=== PATIENT | female | born 1945 | race Caucasian/White ===

== ENCOUNTER → 2016-02-14 | Outpatient (CLI) | payer MEDICARE, OTHER ==
[~2016-02-14] MED LIST: EST.1TD TD; FLUO20CA25 PO; HYDR1TAB PO; LVT.1T PO; TRIA15OI9 TOP; TRIA1CAP PO; VITAMIN B12 INJ; WELCHOL PO
--- OUTSIDE RECORDS SUMMARY | 2016-02-14 11:42 | XMS REPORT | Continuity of Care Document ---
Author Author [facility] Organization [facility] Address Unknown Phone Unavailable Care Team Providers Care Competency Evaluated Nurse Aide Name Role Phone BRITTANIE GOEL DO PCP Insurance Providers Payer Name Policy Number Subscriber Name Relationship [employer] [id number] Jason Gomez 18 Self / Same As Patient Blue [employer] [facility] Supp [id number] Jevon Gomez 01 Advance Directives Directive Response Recorded Date/Time Advance Directives No 05/17/14 7:50am Health Care Power of Pack Worker Supervisor No 05/17/14 7:50am Organ Donor Yes 05/17/14 7:50am Resuscitation Status Full Code 05/17/14 7:50am Problems No known problems or medical conditions. Medications Medication Dose Route Sig Days/Qty Instructions Order Date Discontinued Date Status Levothyroxine Sodium 1 Tab PO DAILY 30 Qty 05/16/08 Active Fluoxetine HCl (Prozac) 20 Mg PO DAILY 34 Qty 05/16/08 Active Triamterene/HCTZ 1 Each PO DAILY 1 Qty 05/16/08 Active [Welchol] 1,875 Mg PO DAILY 09/25/12 05/17/14 Discontinued Triamcinolone Acetonide (Kenalog) 0 TOP WEEKLY APPLY SPRARINGLY TO AFFECTED AREA(S) 09/25/12 05/17/14 Discontinued Social History Social History Problem Response Recorded Date/Time Recent Foreign Travel No 05/17/2014 7:55am Smoking Status Never a Smoker 05/17/2014 7:50am Do you dip or chew tobacco? No 05/17/2014 7:50am Query Response Start Date Stop Date Smoking Status Never a Smoker Hospital Discharge Instructions No hospital discharge instructions. Plan of Care No plan of care. Functional Status No functional status results. Allergies, Adverse Reactions, Alerts Allergen Type Severity Reaction Status Last Updated NKANo Known Allergies Allergy Mild Active 05/16/08 Immunizations No immunization records. Vital Signs Acute Vital Signs Vital Response Date/Time Temperature (Fahrenheit) 97.8 degrees F (97.6 - 99.5) Temperature (Calculated Celsius) 36.14721 degrees C (36.4 - 37.5) Temperature Source Tympanic Pulse Rate (adult) 69 bpm (60 - 90) Respiratory Rate 18 bpm (12 - 24) O2 Sat by Pulse Oximetry 93 % (88 - 100) Blood Pressure 128/91 mm Hg Blood Pressure 108/65 mm Hg Pain Pain Intensity 0 Height (Feet) 5 feet Height (Inches) 0.00 inches Height (Calculated Centimeters) 152.114200 cm Weight (Pounds) 140 pounds Weight (Calculated Grams) 44543.932 gm Weight (Calculated Kilograms) 63.122403 kilograms Height 5 ft 0 in Weight 140 lb Body Mass Index 27.3 kg/m^2 Results No known relevant diagnostic tests, laboratory data and/or discharge summary. Procedures No known history of procedures. Encounters Encounter Location Date/Time Registered [facility] 05/17/14 7:26am Registered Clinic [facility] 05/12/14 6:07am
--- NOTE | 2016-02-14 13:01 | Diagnostic Imaging Report ---
PROCEDURE: MRI right joint upper extremity without contrast. TECHNIQUE: Multiplanar, multisequence non contrast-enhanced MRI of the right upper extremity was accomplished. INDICATION: Rotator cuff injury. Fall. FINDINGS: There is no os acromiale or Hill-Sachs deformity. There is acromioclavicular joint hypertrophy with inferior capsular hypertrophy and osteophyte seen. This has an impression upon the supraspinatus myotendinous junction. There is a full-thickness tear with 5 mm tendon stump retraction from the insertion site seen involving the anterior fibers of the supraspinatus and high-grade partial tear involving the posterior fibers. There are intrasubstance and bursal side partial tears involving the insertion of the infraspinatus. There is small amount of fluid in the subacromial subdeltoid bursa. The long head biceps tendon is within its groove. There is thickening and increased signal in the subscapular tendon compatible with tendinosis and suggestion of an intrasubstance tear in the distal aspect of this tendon. No definitive abnormality is seen on gross evaluation of the labrum on this study without intra-articular contrast. The muscle bulk and signal around the shoulder is within normal limits. IMPRESSION: 1. Rotator cuff tears most prominent in the anterior fibers of the supraspinatus that demonstrates a full-thickness tear with 5 mm tendon stump retraction. 2. 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 Dictated by: Dictated on workstation # [id number]
== END ==
LOC: RAD 11:38
PROVIDERS: ATTEND Internal Medicine
DX: S46.001A Unspecified injury of muscle(s) and tendon(s) of the rotator cuff of right shoulder, initial encounter (principal); X58.XXXA Exposure to other specified factors, initial encounter; Y99.8 Other external cause status
CPT/HCPCS: 73221

== ENCOUNTER → 2016-08-27 | Outpatient (CLI) | payer MEDICARE, OTHER ==
[~2016-08-27] MED LIST changes: +CATHETER FLUSH 10 ML SYR IV PRN
[2016-08-27 08:04] VITALS: BP 111/75
[2016-08-27 08:26] VITALS: BP 148/66
--- NOTE | 2016-08-28 09:27 | STRESS TEST ---
PROCEDURE PHYSICIAN: DURGA YODER DATE OF PROCEDURE: 08/27/2016 EXERCISE NUCLEAR STRESS TEST REPORT: ATTENDING PHYSICIAN: Dr. South DIAGNOSIS: Exertional shortness of breath. PROCEDURE DETAILS: Please review Dr. South's note on the exercise stress test. Myocardial perfusion imaging was performed with 10.34 mCi of Myoview at rest and 31.8 mCi of Myoview for stress imaging. TID was 0.95. EF was 75%. There is a small mild fixed apical defect. There is normal wall motion. In lieu of normal wall motion, this is likely an artifact. IMPRESSION/CONCLUSION: 1. Normal LV function. 2. Small mild fixed apical defect which is likely an artifact. Job ID: [id number] Dictated Date: 08/27/2016 13:23:00 Safety Instructor Date: 08/28/2016 09:22:15 / anabel
== END ==
LOC: CARD 06:38
PROVIDERS: ATTEND Internal Medicine
DX: R06.09 Other forms of dyspnea (principal); I10 Essential (primary) hypertension
CPT/HCPCS: 78452; 93017

== ENCOUNTER → 2016-09-04 | Outpatient (CLI) | payer MEDICARE, OTHER ==
[~2016-09-04] MED LIST changes: -CATHETER FLUSH 10 ML SYR IV PRN
--- NOTE | 2016-09-06 14:29 | Diagnostic Imaging Report ---
Bilateral screening mammogram 2D views with tomosynthesis The current study was also evaluated with a Computer Aided Detection (CAD) system. INDICATION: Screening. No current complaints stated on the questionnaire. COMPARISON: 08/18/2015. FINDINGS: The breasts are composed of heterogeneously dense parenchyma which may decrease mammographic sensitivity. Scattered benign-appearing calcifications seen. Allowing for technique and positional differences, no suspicious change is seen. IMPRESSION: No significant change. ACR BI-RADS Category 2: Benign findings. Result letter will be mailed to the patient. Note: At least 10% of breast cancer is not imaged by mammography. Dictated by: Dictated on workstation # [id number]
== END ==
LOC: RAD 10:57
PROVIDERS: ATTEND Internal Medicine
DX: Z12.31 Encounter for screening mammogram for malignant neoplasm of breast (principal)
CPT/HCPCS: 77067

== ENCOUNTER → 2016-10-11 | Outpatient (CLI) | payer MEDICARE, OTHER ==
--- NOTE | 2016-10-11 19:15 | Diagnostic Imaging Report ---
INDICATION: Right foot pain. AP, oblique, and lateral views of the right foot are obtained. There are degenerative changes of the first MTP joint. There is no acute fracture or acute bony abnormality. Joint spaces are otherwise unremarkable. IMPRESSION: Degenerative findings of the first MTP joint. No acute fracture or acute bony abnormality. Dictated on workstation # [id number]
== END ==
LOC: RAD 10:15
PROVIDERS: ATTEND Internal Medicine
DX: M19.071 Primary osteoarthritis, right ankle and foot (principal)
CPT/HCPCS: 73630

== ENCOUNTER → 2016-10-25 | Outpatient (CLI) | payer MEDICARE, OTHER | LOC: CARD 08:49 | PROVIDERS: ATTEND Internal Medicine | DX: I51.7 Cardiomegaly (principal) | CPT/HCPCS: 93306 ==

== ENCOUNTER → 2017-09-12 | Outpatient (CLI) | payer MEDICARE, OTHER ==
--- NOTE | 2017-09-12 08:59 | Diagnostic Imaging Report ---
Indication: Routine screening. Comparison is made with prior exam from 09/04/2016 and 08/18/2015. 2-D and 3-D bilateral screening mammography was performed with CAD. Both breasts remain heterogeneously dense, limiting the sensitivity of mammography. There is an enlarging circumscribed nodular density in the far posterior slightly outer aspect of the left breast. This does have circumscribed margins and appears fairly benign however ultrasound is recommended. No spiculated mass is seen. No malignant appearing microcalcifications are identified. The axillae are unremarkable. Impression: Small circumscribed nodular density in the far posterior and slightly outer left breast approximately 11 cm from the nipple. Further evaluation with ultrasound is recommended. BI-RADS category zero ACR BI-RADS Category 0: Incomplete. (Needs additional imaging evaluation). Result letter will be mailed to the patient. Note: At least 10% of breast cancer is not imaged by mammography. Dictated by: Dictated on workstation # [id number]
== END ==
LOC: RAD 07:43
PROVIDERS: ATTEND Family Medicine
DX: Z12.31 Encounter for screening mammogram for malignant neoplasm of breast (principal)
CPT/HCPCS: 77067

== ENCOUNTER → 2017-09-19 | Outpatient (CLI) | payer MEDICARE, OTHER ==
--- NOTE | 2017-09-19 13:19 | Diagnostic Imaging Report ---
INDICATION: Abnormal mammogram. This study is performed for further evaluation. Correlation is made with recent screening mammogram from 09/12/2017. FINDINGS: Sonographic interrogation of the lateral and slightly lower left breast was performed at posterior depth. There is a cyst at the 3:30 location 7 cm from the nipple measuring 5 mm x 4 mm x 4 mm. No internal vascularity is seen. This may account for the mammographic circumscribed density. No other abnormalities are seen. IMPRESSION: 5 mm cyst at 3:30 location 7 cm from the nipple, likely accounting for the mammographic density. Even so, follow-up left mammogram and left breast ultrasound in six months is recommended to confirm stability. ACR BI-RADS Category 3: Probably benign findings. Dictated by: Dictated on workstation # [id number]
== END ==
LOC: RAD 10:41
PROVIDERS: ATTEND Family Medicine
DX: N60.02 Solitary cyst of left breast (principal)
CPT/HCPCS: 76642

== ENCOUNTER → 2018-03-13 | Outpatient (CLI) | payer MEDICARE, OTHER ==
[2018-03-13 08:58] LABS: HEMOGLOBIN 13.5 G/DL (11.5-16.0); MEAN PLATELET VOLUME 9.2 FL (7.4-10.4); RED CELL DISTRIBUTION WIDTH 14.1 % (10.0-14.5); WHITE BLOOD COUNT 7.4 10^3/uL (4.3-11.0)
[2018-03-13 09:18] LABS: ALBUMIN 4.4 GM/DL (3.2-4.5); BILIRUBIN,TOTAL 0.7 MG/DL (0.1-1.0); CALCIUM 9.7 MG/DL (8.5-10.1); CREATININE SERUM 1.21 MG/DL (0.60-1.30); POTASSIUM 4.2 MMOL/L (3.6-5.0); TOTAL PROTEIN 7.9 GM/DL (6.4-8.2)
--- NOTE | 2018-03-13 22:21 | Diagnostic Imaging Report ---
INDICATION: Six-month followup. COMPARISON: Prior examination from 09/12/2017 back through 08/24/2010. EXAMINATION: Three mammographic views were obtained. FINDINGS: There are scattered fibroglandular densities, bilaterally. The previously seen well-circumscribed density in the posterior lateral left breast has decreased significantly in size since prior examination. There is no new dominant mass, spiculated lesion or suspicious calcification identified. There are a few benign type calcifications. Skin, nipples and axilla are unremarkable. IMPRESSION: The patient should resume screening mammography in August 2018. ACR BI-RADS Category 2: Benign findings. Result letter will be mailed to the patient. Note: At least 10% of breast cancer is not imaged by mammography. Dictated by: Dictated on workstation # [id number]
== END ==
LOC: RAD 08:27
PROVIDERS: ATTEND Family Medicine
DX: E78.2 Mixed hyperlipidemia (principal); E03.9 Hypothyroidism, unspecified; R92.8 Other abnormal and inconclusive findings on diagnostic imaging of breast; I10 Essential (primary) hypertension
CPT/HCPCS: 36415; 80053; 80061; 84443; 85027

== ENCOUNTER 2018-05-01 06:15 | Outpatient (CLI) | payer MEDICARE, OTHER ==
[~2018-05-01] VITALS: Ht 152.4 cm; Wt 63.5 kg
[2018-05-01] MEDS ORDERED: LEVO75TA6 PO (10:16)
[2018-05-01] MEDS ORDERED: FLUO20CA42 PO (10:16)
[2018-05-01] MEDS ORDERED: ATOR40TA70 PO (10:16)
== END 2018-05-01 10:23 | disposition home or self-care (01) ==
LOC: PREOP 06:15
PROVIDERS: ATTEND Specialist
DX: Z01.818 Encounter for other preprocedural examination (principal)

== ENCOUNTER 2018-05-02 08:33 | Day surgery (SDC) | payer MEDICARE, OTHER ==
[~2018-05-02] VITALS: Ht 152.4 cm; Wt 63.5 kg
[~2018-05-02 08:33] MED LIST changes: +ATOR40TA70 PO; +FLUO20CA42 PO; +LEVO75TA6 PO
--- OUTSIDE RECORDS SUMMARY | 2018-05-02 08:38 | XMS REPORT | Continuity of Care Document ---
Author Author [facility] Organization [facility] Address Unknown Phone Unavailable Allergies Active Description Code Type Severity Reaction Onset Reported/Identified Relationship to Patient Clinical Status Yes NKANo Known Allergies NKA Miscellaneous Allergy Mild N/A 05/16/2008 Yes No Known Drug Allergies [id number] Drug Allergy Unknown N/A 05/01/2018 Medications There is no data. Problems Date Dx Coded Attending Type Code Diagnosis Diagnosed By 10/01/2012 JAIMIE OCHOA, ASHLEY Lord Ot 575.8 DIS OF GALLBLADDER NEC 05/17/2014 Ot V76.12 05/17/2014 BRITTANIE GOEL DO Ot 536.8 05/17/2014 BRITTANIE GOEL DO Ot 789.01 05/17/2014 BRITTANIE GOEL DO Ot 789.01 05/17/2014 JAIMIE OCHOA, ASHLEY Lord Ot 575.8 05/17/2014 JAIMIE OCHOA, ASHLEY Lord Ot V72.63 05/17/2014 JAIMIE OCHOA, ASHLEY Lord Ot V74.8 05/17/2014 JAIMIE OCHOA, ASHLEY Lord Ot V72.84 05/17/2014 JAIMIE OCHOA, ASHLEY Lord Ot 211.3 BENIGN NEOPLASM LG BOWEL 05/17/2014 JAIMIE OCHOA, ASHLEY Lord Ot 562.10 DIVERTICULOSIS COLON (W/O MENT OF HEMORR 05/17/2014 JAIMIE OCHOA, ASHLEY Lord Ot V16.0 FAMILY HX-GI MALIGNANCY 05/17/2014 JAIMIE OCHOA, ASHLEY Lord Ot V76.51 SCREEN MAL NEOP-COLON 06/01/2014 JAIMIE OCHOA, ASHLEY Lord Ot V72.84 06/01/2014 JAIMIE OCHOA, ASHLEY Lord Ot V72.84 06/01/2014 JAIMIE OCHOA, ASHLEY Lord Ot V72.84 06/01/2014 JAIMIE OCHOA, ASHLEY Lord Ot V72.84 06/02/2014 JAIMIE OCHOA, ASHLEY Lord Ot V72.84 06/23/2014 Ot V76.12 06/23/2014 BRITTANIE GOEL DO Ot 536.8 06/23/2014 BRITTANIE GOEL DO Ot 789.01 06/23/2014 BRITTANIE GOEL DO Ot 789.01 06/23/2014 JAIMIE OCHOA, ASHLEY Lord Ot 575.8 06/23/2014 JAIMIE OCHOA, ASHLEY Lord Ot V72.63 06/23/2014 JAIMIE OCHOA, ASHLEY Lord Ot V74.8 06/23/2014 JAIMIE OCHOA, ASHLEY Lord Ot V72.84 06/23/2014 PAULA GOELP Ot V76.12 07/12/2014 PAULA GOELP Ot V76.12 07/23/2014 BRITTANIE GOEL DO Ot 793.80 08/11/2015 Ot V76.12 OT SCREEN MAMMO-MALIGN NEOPLASM OF AMARI 08/11/2015 BRITTANIE GOEL DO Ot 536.8 STOMACH FUNCTION DIS NEC 08/11/2015 BRITTANIE GOEL DO Ot 789.01 ABDOMINAL PAIN, RIGHT UPPER QUADRANT 08/11/2015 BRITTANIE GOEL DO Ot 789.01 ABDOMINAL PAIN, RIGHT UPPER QUADRANT 08/11/2015 JAIMIE OCHOA, ASHLEY Lord Ot 575.8 DIS OF GALLBLADDER NEC 08/11/2015 JAIMIE OCHOA, ASHLEY Lord Ot V72.63 PRE-PROCEDURAL LABORATORY EXAMINATION 08/11/2015 JAIMIE OCHOA, ASHLEY Lord Ot V74.8 SCREEN-BACTERIAL DIS NEC 08/11/2015 JAIMIE OCHOA, ASHLEY Lord Ot V72.84 EXAM PRE-OPERATIVE NOS 08/11/2015 PAULA GOELP Ot V76.12 OT SCREEN MAMMO-MALIGN NEOPLASM OF AMARI 08/11/2015 BRITTANIE GOEL DO Ot 793.80 UNSPEC ABNORMAL MAMMOGRAM 08/12/2015 BRITTNAIE GOEL DO Ot M48.02 SPINAL STENOSIS, CERVICAL REGION 08/12/2015 BRITTANIE GOEL DO Ot M50.31 OTHER CERVICAL DISC DEGENERATION, HIGH 08/12/2015 BRITTANIE GOEL DO Ot M54.2 CERVICALGIA 08/17/2015 BRITTANIE GOEL DO Ot M48.02 SPINAL STENOSIS, CERVICAL REGION 08/17/2015 GOEL DO, BRITTANIE J Ot M50.31 OTHER CERVICAL DISC DEGENERATION, HIGH 08/17/2015 BRITTANIE GOEL DO Ot M54.2 CERVICALGIA 08/24/2015 BRITTANIE GOEL DO Ot Z12.31 ENCNTR SCREEN MAMMOGRAM FOR MALIGNANT NE 09/01/2015 BRITTANIE GOEL DO Ot M48.02 SPINAL STENOSIS, CERVICAL REGION 09/01/2015 BRITTANIE GOEL DO Ot M50.31 OTHER CERVICAL DISC DEGENERATION, HIGH 09/01/2015 BRITTANIE GOEL DO Ot M54.2 CERVICALGIA 09/22/2015 BRITTANIE GOEL DO Ot Z12.31 ENCNTR SCREEN MAMMOGRAM FOR MALIGNANT NE 02/14/2016 Ot V76.12 OT SCREEN MAMMO-MALIGN NEOPLASM OF AMARI 02/14/2016 BRITTANIE GOEL DO Ot 536.8 STOMACH FUNCTION DIS NEC 02/14/2016 BRITTANIE GOEL DO Ot 789.01 ABDOMINAL PAIN, RIGHT UPPER QUADRANT 02/14/2016 BRITTANIE GOEL DO Ot 789.01 ABDOMINAL PAIN, RIGHT UPPER QUADRANT 02/14/2016 JAIMIE OCHOA, ASHLEY Lord Ot 575.8 DIS OF GALLBLADDER NEC 02/14/2016 JAIMIE OCHOA, ASHLEY Lord Ot V72.63 PRE-PROCEDURAL LABORATORY EXAMINATION 02/14/2016 JAIMIE OCHOA, ASHLEY Lord Ot V74.8 SCREEN-BACTERIAL DIS NEC 02/14/2016 JAIMIE OCHOA, ASHLEY Lord Ot V72.84 EXAM PRE-OPERATIVE NOS 02/14/2016 PAULA GOEL BUNDLES HANGER Ot V76.12 OT SCREEN MAMMO-MALIGN NEOPLASM OF AMARI 02/14/2016 BRITTANIE GOEL DO Ot 793.80 UNSPEC ABNORMAL MAMMOGRAM 02/14/2016 BRITTANIE GOEL DO Ot M48.02 SPINAL STENOSIS, CERVICAL REGION 02/14/2016 BRITTANIE GOEL DO Ot M50.31 OTHER CERVICAL DISC DEGENERATION, HIGH 02/14/2016 BRITTANIE GOEL DO Ot M54.2 CERVICALGIA 02/14/2016 BRITTANIE GOEL DO Ot Z12.31 ENCNTR SCREEN MAMMOGRAM FOR MALIGNANT NE 02/15/2016 BRITTANIE GOEL DO Ot S46.001A UNSP INJ MUSC/TEND THE ROTATOR CUFF OF R 02/15/2016 BRITTANIE GOEL DO Ot X58.XXXA EXPOSURE TO OTHER SPECIFIED FACTORS, INI 02/15/2016 BRITTANIE GOEL DO Ot Y99.8 OTHER EXTERNAL CAUSE STATUS 2016 BRITTANIE GOEL DO Ot S46.001A UNSP INJ MUSC/TEND THE ROTATOR CUFF OF R 2016 BRITTANIE GOEL DO Ot X58.XXXA EXPOSURE TO OTHER SPECIFIED FACTORS, INI 2016 BRITTANIE GOEL DO Ot Y99.8 OTHER EXTERNAL CAUSE STATUS 05/29/2016 Ot V76.12 OT SCREEN MAMMO-MALIGN NEOPLASM OF AMARI 05/29/2016 BRITTANIE GOEL DO Ot 536.8 STOMACH FUNCTION DIS NEC 05/29/2016 BRITTANIE GOEL DO Ot 789.01 ABDOMINAL PAIN, RIGHT UPPER QUADRANT 05/29/2016 BRITTANIE GOEL DO Ot 789.01 ABDOMINAL PAIN, RIGHT UPPER QUADRANT 05/29/2016 JAIMIE OCHOA, ASHLEY Lord Ot 575.8 DIS OF GALLBLADDER NEC 05/29/2016 JAIMIE OCHOA, ASHLEY Lord Ot V72.63 PRE-PROCEDURAL LABORATORY EXAMINATION 05/29/2016 JAIMIE OCHOA, ASHLEY Lord Ot V74.8 SCREEN-BACTERIAL DIS NEC 05/29/2016 JAIMIE OCHOA, ASHLEY Lord Ot V72.84 EXAM PRE-OPERATIVE NOS 08/23/2016 Ot V76.12 OT SCREEN MAMMO-MALIGN NEOPLASM OF AMARI 08/23/2016 BRITTANIE GOEL DO Ot 536.8 STOMACH FUNCTION DIS NEC 08/23/2016 BRITTANIE GOEL DO Ot 789.01 ABDOMINAL PAIN, RIGHT UPPER QUADRANT 08/23/2016 BRITTANIE GOEL DO Ot 789.01 ABDOMINAL PAIN, RIGHT UPPER QUADRANT 08/23/2016 JAIMIE OCHOA, ASHLEY Lord Ot 575.8 DIS OF GALLBLADDER NEC 08/23/2016 JAIMIE OCHOA, ASHLEY Lord Ot V72.63 PRE-PROCEDURAL LABORATORY EXAMINATION 08/23/2016 JAIMIE OCHOA, ASHLEY Lord Ot V74.8 SCREEN-BACTERIAL DIS NEC 08/23/2016 JAIMIE OCHOA, ASHLEY Lord Ot V72.84 EXAM PRE-OPERATIVE NOS 08/23/2016 PAULA GOEL Ot V76.12 OT SCREEN MAMMO-MALIGN NEOPLASM OF AMARI 08/23/2016 BRITTANIE GOEL DO Ot 793.80 UNSPEC ABNORMAL MAMMOGRAM 08/23/2016 BRITTANIE GOEL DO, Ot M48.02 SPINAL STENOSIS, CERVICAL REGION 08/23/2016 BRITTANIE GOEL DO, Ot M50.31 OTHER CERVICAL DISC DEGENERATION, HIGH 08/23/2016 BRITTANIE GOEL DO, Ot M54.2 CERVICALGIA 08/23/2016 BRITTANIE GOEL DO, Ot Z12.31 ENCNTR SCREEN MAMMOGRAM FOR MALIGNANT NE 08/23/2016 BRITTANIE OGEL DO, Ot S46.001A UNSP INJ MUSC/TEND THE ROTATOR CUFF OF R 08/23/2016 BRITTANIE GOEL DO, Ot X58.XXXA EXPOSURE TO OTHER SPECIFIED FACTORS, INI 08/23/2016 BRITTANIE GOEL DO, Ot Y99.8 OTHER EXTERNAL CAUSE STATUS 08/28/2016 BRITTANIE GOEL DO, Ot I10 ESSENTIAL (PRIMARY) HYPERTENSION 08/28/2016 BRITTANIE GOEL DO Ot R06.09 OTHER FORMS OF DYSPNEA 08/31/2016 BRITTANIE GOEL DO, Ot Z12.31 ENCNTR SCREEN MAMMOGRAM FOR MALIGNANT NE 09/04/2016 BRITTANIE GOEL DO, Ot Z12.31 ENCNTR SCREEN MAMMOGRAM FOR MALIGNANT NE 09/05/2016 BRITTANIE GOEL DO, Ot Z12.31 ENCNTR SCREEN MAMMOGRAM FOR MALIGNANT NE 09/19/2016 BRITTANIE GOEL DO, Ot I10 ESSENTIAL (PRIMARY) HYPERTENSION 09/19/2016 BRITTANIE GOEL DO Ot R06.09 OTHER FORMS OF DYSPNEA 09/25/2016 BRITTANIE GOEL DO, Ot Z12.31 ENCNTR SCREEN MAMMOGRAM FOR MALIGNANT NE 10/31/2016 BRITTANIE GOEL DO Ot I51.7 CARDIOMEGALY 11/02/2016 BRITTANIE GOEL DO Ot M19.071 PRIMARY OSTEOARTHRITIS, RIGHT ANKLE AND 11/15/2016 BRITTANIE GOEL DO, Ot I51.7 CARDIOMEGALY 02/13/2017 Ot V76.12 OT SCREEN MAMMO-MALIGN NEOPLASM OF AMARI 02/13/2017 BRITTANIE GOEL DO Ot 536.8 STOMACH FUNCTION DIS NEC 02/13/2017 BRITTANIE GOEL DO Ot 789.01 ABDOMINAL PAIN, RIGHT UPPER QUADRANT 02/13/2017 BRITTANIE GOEL DO Ot 789.01 ABDOMINAL PAIN, RIGHT UPPER QUADRANT 02/13/2017 JAIMIE OCHOA, ASHLEY Lord Ot 575.8 DIS OF GALLBLADDER NEC 02/13/2017 JAIMIE OCHOA, ASHLEY Lord Ot V72.63 PRE-PROCEDURAL LABORATORY EXAMINATION 02/13/2017 AJIMIE OCHOA, ASHLEY Lord Ot V74.8 SCREEN-BACTERIAL DIS NEC 02/13/2017 JAIMIE OCHOA, ASHLEY Lord Ot V72.84 EXAM PRE-OPERATIVE NOS 04/05/2017 Ot V76.12 OTH SCREEN MAMMO-MALIGN NEOPLASM OF AMARI 04/05/2017 BRITTANIE GOEL DO Ot 536.8 STOMACH FUNCTION DIS NEC 04/05/2017 BRITTANIE GOEL DO Ot 789.01 ABDOMINAL PAIN, RIGHT UPPER QUADRANT 04/05/2017 BRITTANIE GOEL DO Ot 789.01 ABDOMINAL PAIN, RIGHT UPPER QUADRANT 04/05/2017 JAIMIE OCHOA, ASHLEY Lord Ot 575.8 DIS OF GALLBLADDER NEC 04/05/2017 JAIMIE OCHOA, ASHLEY Lord Ot V72.63 PRE-PROCEDURAL LABORATORY EXAMINATION 04/05/2017 JAIMIE OCHOA, ASHLEY Lord Ot V74.8 SCREEN-BACTERIAL DIS NEC 04/05/2017 JAIMIE OCHOA, ASHLEY Lord Ot V72.84 EXAM PRE-OPERATIVE NOS 10/31/2017 Ot N60.02 SOLITARY CYST OF LEFT BREAST 2018 JAIMIE OCHOA, ASHLEY Lord Ot 575.8 DIS OF GALLBLADDER NEC 2018 JAIMIE OCHOA, ASHLEY Lord Ot V72.63 PRE-PROCEDURAL LABORATORY EXAMINATION 2018 JAIMIE OCHOA, ASHLEY Lord Ot V74.8 SCREEN-BACTERIAL DIS NEC 2018 JAIMIE OCHOA, ASHLEY Lord Ot V72.84 EXAM PRE-OPERATIVE NOS 2018 PAULA GOEL Ot V76.12 OT SCREEN MAMMO-MALIGN NEOPLASM OF AMARI 2018 BRITTANIE GOEL DO Ot 793.80 UNSPEC ABNORMAL MAMMOGRAM 2018 BRITTANIE GOEL DO Ot M48.02 SPINAL STENOSIS, CERVICAL REGION 2018 BRITTANIE GOEL DO Ot M50.31 OTHER CERVICAL DISC DEGENERATION, HIGH 2018 BRITTANIE GOEL DO Ot M54.2 CERVICALGIA 2018 BRITTANIE GEOL DO, Ot Z12.31 ENCNTR SCREEN MAMMOGRAM FOR MALIGNANT NE 2018 BRITTANIE GOEL DO, Ot S46.001A UNSP INJ MUSC/TEND THE ROTATOR CUFF OF R 2018 BRITTANIE GOEL DO, Ot X58.XXXA EXPOSURE TO OTHER SPECIFIED FACTORS, INI 2018 BRITTANIE GOEL DO Ot Y99.8 OTHER EXTERNAL CAUSE STATUS 2018 BRITTANIE GOEL DO, Ot I10 ESSENTIAL (PRIMARY) HYPERTENSION 2018 BRITTANIE GOEL DO Ot R06.09 OTHER FORMS OF DYSPNEA 2018 BRITTANIE GOEL DO, Ot Z12.31 ENCNTR SCREEN MAMMOGRAM FOR MALIGNANT NE 2018 BRITTANIE GOEL DO, Ot I51.7 CARDIOMEGALY 2018 BRITTANIE GOEL DO, Ot M19.071 PRIMARY OSTEOARTHRITIS, RIGHT ANKLE AND 2018 WELLINGTON DELAROSA MD, Ot Z12.31 ENCNTR SCREEN MAMMOGRAM FOR MALIGNANT NE 2018 Ot N60.02 SOLITARY CYST OF LEFT BREAST 2018 WELLINGTON DELAROSA MD, Ot R92.8 OTH ABN AND INCONCLUSIVE FINDINGS ON DX 04/02/2018 WELLINGTON DELAROSA MD, Ot E03.9 HYPOTHYROIDISM, UNSPECIFIED 04/02/2018 WELLINGTON DELAROSA MD, Ot E78.2 MIXED HYPERLIPIDEMIA 04/02/2018 WELLINGTON DELAROSA MD, Ot I10 ESSENTIAL (PRIMARY) HYPERTENSION 04/02/2018 WELLINGTON DELAROSA MD, Ot R92.8 OTH ABN AND INCONCLUSIVE FINDINGS ON DX 04/09/2018 JAIMIE OCHOA, ASHLEY Lord Ot V72.84 EXAM PRE-OPERATIVE NOS Procedures There is no data. Results Test Result Range Automated blood complete blood count (hemogram) panel - 03/13/18 08:55 Blood leukocytes automated count (number/volume) 7.4 10*3/uL 4.3-11.0 Blood erythrocytes automated count (number/volume) 4.49 10*6/uL 4.35-5.85 Venous blood hemoglobin measurement (mass/volume) 13.5 g/dL 11.5-16.0 Blood hematocrit (volume fraction) 41 % 35-52 Automated erythrocyte mean corpuscular volume 92 [foz_us] 80-99 Automated erythrocyte mean corpuscular hemoglobin (mass per erythrocyte) 30 pg 25-34 Automated erythrocyte mean corpuscular hemoglobin concentration measurement ( mass/volume) 33 g/dL 32-36 Automated erythrocyte distribution width ratio 14.1 % 10.0-14.5 Automated blood platelet count (count/volume) 359 10*3/uL 130-400 Automated blood platelet mean volume measurement 9.2 [foz_us] 7.4-10.4 Comprehensive metabolic panel - 03/13/18 08:55 Serum or plasma sodium measurement (moles/volume) 139 mmol/L 135-145 Serum or plasma potassium measurement (moles/volume) 4.2 mmol/L 3.6-5.0 Serum or plasma chloride measurement (moles/volume) 104 mmol/L 98-107 Carbon dioxide 26 mmol/L 21-32 Serum or plasma anion gap determination (moles/volume) 9 mmol/L 5-14 Serum or plasma urea nitrogen measurement (mass/volume) 18 mg/dL 7-18 Serum or plasma creatinine measurement (mass/volume) 1.21 mg/dL 0.60-1.30 Serum or plasma urea nitrogen/creatinine mass ratio 15 NRG Serum or plasma creatinine measurement with calculation of estimated glomerular filtration rate 44 NRG Serum or plasma glucose measurement (mass/volume) 97 mg/dL 70-105 Serum or plasma calcium measurement (mass/volume) 9.7 mg/dL 8.5-10.1 Serum or plasma total bilirubin measurement (mass/volume) 0.7 mg/dL 0.1-1.0 Serum or plasma alkaline phosphatase measurement (enzymatic activity/volume) 88 U/L 40-136 Serum or plasma aspartate aminotransferase measurement (enzymatic activity/ volume) 31 U/L 5-34 Serum or plasma alanine aminotransferase measurement (enzymatic activity/volume ) 35 U/L 0-55 Serum or plasma protein measurement (mass/volume) 7.9 g/dL 6.4-8.2 Serum or plasma albumin measurement (mass/volume) 4.4 g/dL 3.2-4.5 CALCIUM CORRECTED 9.4 mg/dL 8.5-10.1 Lipid 1996 panel - 03/13/18 08:55 Serum or plasma triglyceride measurement (mass/volume) 145 mg/dL <150 Serum or plasma cholesterol measurement (mass/volume) 161 mg/dL < 200 Serum or plasma cholesterol in HDL measurement (mass/volume) 39 mg/ dL 40-60 Cholesterol in LDL [mass/volume] in serum or plasma by direct assay 101 mg/dL 1-129 Serum or plasma cholesterol in VLDL measurement (mass/volume) 29 mg/ dL 5-40 THYROID STIMULATING HORMONE - 03/13/18 08:55 THYROID STIMULATING HORMONE 1.18 u[iU]/mL 0.35-4.94 Encounters ACCT No. Visit Date/Time Discharge Status Pt. Type Provider Facility Loc./Unit Complaint [id number] 05/01/2018 06:15:00 05/01/2018 10:23:00 DIS Outpatient SOLO HOWARD MD [facility] PREOP CATARACT LEFT EYE [id number] 2018 08:27:00 2018 23:59:59 CLS Outpatient WELLINGTON DELAROSA MD [facility] RAD ABN LEFT MAMMO [id number] 09/02/2017 11:18:00 09/02/2017 23:59:59 CLS Outpatient WELLINGTON DELAROSA MD [facility] RAD SCREENING MAMMOGRAM [id number] 10/25/2016 08:49:00 10/25/2016 23:59:59 CLS Outpatient BRITTANIE GOEL DO [facility] CARD M89.322 [id number] 10/11/2016 10:15:00 10/11/2016 23:59:59 CLS Outpatient BRITTANIE GOEL DO [facility] RAD TRAUMA TO TOE [id number] 09/04/2016 10:57:00 09/04/2016 23:59:59 CLS Outpatient BRITTANIE GOEL DO [facility] RAD SCREENING [id number] 08/27/2016 06:38:00 08/27/2016 23:59:59 CLS Outpatient BRITTANIE GOEL DO [facility] CARD DYSYPNEA ON EXERSION ,I10 [id number] 02/14/2016 11:38:00 02/14/2016 23:59:59 CLS Outpatient BRITTANIE GOEL DO [facility] RAD ROTATOR CUFF INJURY [id number] 08/18/2015 10:11:00 08/18/2015 23:59:59 CLS Outpatient BRITTANIE GOEL DO [facility] RAD SCREENING [id number] 08/11/2015 10:53:00 08/11/2015 23:59:59 CLS Outpatient BRITTANIE GOEL DO [facility] RAD NECK PAIN [id number] 06/23/2014 13:02:00 06/23/2014 23:59:59 CLS Outpatient BRITTANIE GOEL DO [facility] RAD ABNORMAL MAMMO [id number] 06/15/2014 09:51:00 06/15/2014 23:59:59 CLS Outpatient PAULA GOEL [facility] RAD SCREENING [id number] 05/17/2014 07:26:00 05/17/2014 10:56:00 DIS Outpatient ASHLEY ETIENNE MD [facility] SCREENING; ABDOMINAL PAIN [id number] 05/12/2014 06:07:00 05/12/2014 23:59:59 CLS Outpatient ASHLEY ETIENNE MD [facility] PREOP SCREENING; ABDOMINAL PAIN [id number] 10/01/2012 10:48:00 10/01/2012 16:50:00 DIS Outpatient ASHLEY ETIENNE MD [facility] DYSKINESIA [id number] 09/25/2012 08:31:00 09/25/2012 23:59:59 CLS Outpatient ASHLEY ETIENNE MD [facility] PREOP DYSKINESIA [id number] 09/01/2012 14:00:00 09/01/2012 23:59:59 CLS Outpatient BRITTANIE GOEL DO [facility] RAD RUQ PAIN [id number] 08/25/2012 07:49:00 08/25/2012 23:59:59 CLS Outpatient BRITTANIE GOEL DO [facility] RAD RUQ PAIN [id number] 05/02/2018 08:33:00 ACT Outpatient SOLO HOWARD MD [facility] CATARACT LEFT EYE [id number] 09/19/2017 10:41:00 Document Registration [id number] 05/20/2012 11:09:00 Document Registration
[2018-05-02] MEDS: TETRACAINE 0.5% OPHTH SOLN 4 ML BTL (SINGLE DOSE ONLY) OU PRN ×4 (09:04→09:25)
[2018-05-02 09:05] VITALS: BP 131/81
[2018-05-02] MEDS: PHENYLEPHRINE 10% OPHTH (NEO-SYN) 5 ML BTL OU PRN ×3 (09:07→09:20)
[2018-05-02] MEDS: TROPICAMIDE 1% OPH SOLN (MYDRIACYL) 15 ML BTL OU PRN ×3 (09:07→09:20)
[2018-05-02 09:34] VITALS: BP 131/81
--- NOTE | 2018-05-02 09:41 | Ophthalmologist Pre-Op Note ---
Pre-Operative Progress Note H&P Reviewed The H&P was reviewed, patient examined and no changes noted. Date H&P Reviewed: May 02, 2018 Time H&P Reviewed: 09:23 Pre-Op Dx Secondary Cataract, Right Eye SOLO HOWARD MD May 02, 2018 09:41
--- NOTE | 2018-05-02 09:42 | Ophthalmology Operative Report ---
YAG Capsulotomy PREOPERATIVE DIAGNOSIS: Secondary Cataract Left Eye POSTOPERATIVE DIAGNOSIS: Secondary Cataract Left Eye PROCEDURE: YAG Capsulotomy, left eye SURGEON: Adan Howard ANESTHESIA: Topical anesthesia COMPLICATIONS: None ESTIMATED BLOOD LOSS: Minimal DESCRIPTION OF PROCEDURE: After proper informed consent was obtained, the patient's, a 73 female left eye received one drop of Tropicamide and one drop of Tetracaine. The patient was then placed at the YAG laser and using a power of [ 4.0] millijoules and [ 16] bursts were used to fashion a central capsulotomy. The patient tolerated the procedure well without complications and the patient's pressure was [15 ] shortly after the laser. ADAN HOWARD MD May 02, 2018 09:42
== END 2018-05-02 09:34 | disposition home or self-care (01) ==
LOC: SDC 08:33
PROVIDERS: ATTEND Specialist
DX: H26.492 Other secondary cataract, left eye (principal)

== ENCOUNTER → 2018-10-01 | Outpatient (CLI) | payer MEDICARE, OTHER ==
--- NOTE | 2018-10-01 19:21 | Diagnostic Imaging Report ---
INDICATION: Routine screening. Comparison is made with prior mammograms from 09/12/2017 and 09/04/2016. 2-D and 3-D bilateral screening mammography was performed. The current study was also evaluated with a Computer Aided Detection (CAD) system. 3-D tomosynthesis was also performed and reviewed. FINDINGS: Both breasts remain heterogeneously dense, limiting the sensitivity of mammography. Small circumscribed nodule lateral right breast mid depth is stable. Overall fibronodular pattern bilaterally appears to be stable. No dominant mass is identified. No malignant-appearing microcalcifications are seen. The axillae are unremarkable. IMPRESSION: No mammographic features suspicious for malignancy are identified. ACR BI-RADS Category 2: Benign findings. Result letter will be mailed to the patient. Note: At least 10% of breast cancer is not imaged by mammography. Dictated by: Dictated on workstation # [id number]
== END ==
LOC: RAD 10:59
PROVIDERS: ATTEND Family Medicine
DX: Z12.31 Encounter for screening mammogram for malignant neoplasm of breast (principal)
CPT/HCPCS: 77067

== ENCOUNTER → 2019-09-03 | Outpatient (CLI) | payer MEDICARE, OTHER ==
[2019-09-03 09:51] LABS: BASOPHILS # (AUTO) 0.1 10^3/uL (0.0-0.1); BASOPHILS % (AUTO) 1 % (0-10); EOSINOPHILS # (AUTO) 0.1 10^3/uL (0.0-0.3); EOSINOPHILS % (AUTO) 2 % (0-10); HEMATOCRIT 40 % (35-52); HEMOGLOBIN 13.6 G/DL (11.5-16.0); LYMPHOCYTES # (AUTO) 2.6 X 10^3 (1.0-4.0); LYMPHOCYTES % (AUTO) 41 % (12-44); MEAN CORPUSCULAR HEMOGLOBIN 31 PG (25-34); MEAN CORPUSCULAR HGB CONC 34 G/DL (32-36); MEAN CORPUSCULAR VOLUME 92 FL (80-99); MEAN PLATELET VOLUME 9.4 FL (7.4-10.4); MONOCYTES # (AUTO) 0.4 X 10^3 (0.0-1.0); MONOCYTES % (AUTO) 7 % (0-12); NEUTROPHILS # (AUTO) 3.1 X 10^3 (1.8-7.8); NEUTROPHILS % (AUTO) 49 % (42-75); PLATELET COUNT 365 10^3/uL (130-400); WHITE BLOOD COUNT 6.3 10^3/uL (4.3-11.0)
[2019-09-03 09:58] LABS: ALBUMIN 4.1 GM/DL (3.2-4.5)
[2019-09-03 09:59] LABS: POTASSIUM 4.4 MMOL/L (3.6-5.0)
[2019-09-03 10:00] LABS: CALCIUM 8.9 MG/DL (8.5-10.1)
[2019-09-03 10:01] LABS: TOTAL PROTEIN 7.3 GM/DL (6.4-8.2)
[2019-09-03 10:03] LABS: BILIRUBIN,TOTAL 0.5 MG/DL (0.1-1.0)
[2019-09-03 10:05] LABS: CREATININE SERUM 1.07 MG/DL (0.60-1.30)
[2019-09-03 10:29] LABS: FREE T4 (FREE THYROXINE) 1.16 NG/DL (0.70-1.48)
== END ==
LOC: LAB 09:21
PROVIDERS: ATTEND Family Medicine
DX: Z00.00 Encounter for general adult medical examination without abnormal findings (principal); E03.9 Hypothyroidism, unspecified; E78.5 Hyperlipidemia, unspecified; R53.83 Other fatigue
CPT/HCPCS: 36415; 80053; 84439; 84443; 85025

== ENCOUNTER → 2019-10-05 | Outpatient (CLI) | payer MEDICARE, OTHER ==
--- NOTE | 2019-10-05 13:43 | Diagnostic Imaging Report ---
INDICATION: Routine screening. COMPARISON: 10/01/2018 and 09/12/2017. TECHNIQUE: 2D and 3D bilateral screening mammography was performed with CAD. FINDINGS: Both breasts are heterogeneously dense, limiting the sensitivity of mammography. The fibronodular parenchyma pattern is stable. No dominant mass or malignant appearing microcalcifications are seen. There are benign calcifications in both breasts. The axillae are unremarkable. IMPRESSION: No mammographic features suspicious for malignancy are identified. ACR BI-RADS Category 2: Benign findings. Result letter will be mailed to the patient. Note: At least 10% of breast cancer is not imaged by mammography. Dictated by: Dictated on workstation # [id number]
== END ==
LOC: RAD 10:11
PROVIDERS: ATTEND Family Medicine
DX: Z12.31 Encounter for screening mammogram for malignant neoplasm of breast (principal)
CPT/HCPCS: 77063; 77067

== ENCOUNTER 2020-03-24 11:56 | Emergency (ER) | payer MEDICARE, OTHER ==
[~2020-03-24] VITALS: Ht 152 cm; Wt 63.5 kg
--- NOTE | 2020-03-24 12:18 | ED General ---
General Chief Complaint: Dizziness/Syncope Stated Complaint: COVID +,SYNCOPE Nursing Triage Note: Pt reports standing in kitchen and became dizzy and had syncopal episode. Pt's reports pt hit head during fall. Pt denies any pain during initial assessment. Pt tested positive for COVID on 03/16 with symptoms starting on 03/14. Nursing Sepsis Screen: No Definite Risk Source of Information: Patient Exam Limitations: No Limitations History of Present Illness Date Seen by Provider: Mar 24, 2020 Time Seen by Provider: 12:10 Initial Comments Patient tested positive for Covid on 03/16 but her symptoms began on 03/14. Today she had a dizzy spell that caused her to fall striking her head on the table. She denies any headache or neck pain. Timing/Duration: 1-2 Days Severity: Moderate Associated Systoms: Denies Symptoms Allergies and Home Medications Allergies Coded Allergies: No Known Drug Allergies (Unverified , 05/01/18) Home Medications Atorvastatin Calcium 40 Mg Tablet, 40 MG PO DAILY, (Reported) Fluoxetine HCl 20 Mg Capsule, 20 MG PO DAILY, (Reported) Levothyroxine Sodium 75 Mcg Tablet, 75 MCG PO DAILY, (Reported) Meclizine HCl 25 Mg Tablet, 25 MG PO BID PRN for DIZZINESS Prescribed by: SARAH PERERA on 03/24/20 [id number] Patient Home Medication List Home Medication List Reviewed: Yes Review of Systems Review of Systems Constitutional: see HPI, chills EENTM: see HPI Respiratory: see HPI, cough Cardiovascular: no symptoms reported Genitourinary: no symptoms reported Musculoskeletal: no symptoms reported Skin: no symptoms reported Psychiatric/Neurological: No Symptoms Reported Hematologic/Lymphatic: No Symptoms Reported Past Ymwrozg-Vgeyfs-Kgibsm Hx Patient Social History Alcohol Use: Denies Use Smoking Status: Never a Smoker Recent Infectious Disease Expo: No Recent Hopitalizations: No Seasonal Allergies Seasonal Allergies: No Past Medical History Gallbladder, Hysterectomy Respiratory: No Cardiac: Yes 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 0.0oz. [id number]; 27.00 BMI Method: General Appearance: No Apparent Distress, WD/WN, Other (95% room air) Eyes: Bilateral Eye Normal Inspection, Bilateral Eye PERRL, Bilateral Eye EOMI Neck: Full Range of Motion, Normal Inspection Respiratory: No Accessory Muscle Use, No Respiratory Distress Cardiovascular: Regular Rate, Rhythm, Normal Peripheral Pulses Gastrointestinal: Non Tender, Soft Extremity: Normal Capillary Refill, Normal Inspection Neurologic/Psychiatric: Alert, Oriented x3 Skin: Normal Color, Warm/Dry Progress/Results/Core Measures Suspected Sepsis Recent Fever Within 48 Hours: No Infection Criteria Present: Documented Infection New/Unexplained Altered Menta: No Sepsis Screen: No Definite Risk SIRS Temperature: Pulse: 79 Respiratory Rate: 18 Laboratory Tests 03/24/20 12:42: White Blood Count 12.8H Blood Pressure 111 /76 Mean: 88 Laboratory Tests 03/24/20 12:42: Creatinine 1.26, INR Comment 1.1, Platelet Count 293, Total Bilirubin 1.0 Results/Orders Lab Results Laboratory Tests Test 03/24/20 12:42 Range/Units White Blood Count 12.8 H 4.3-11.0 10^3/uL Red Blood Count 4.77 3.80-5.11 10^6/uL Hemoglobin 14.5 11.5-16.0 g/dL Hematocrit 43 35-52 % Mean Corpuscular Volume 90 80-99 fL Mean Corpuscular Hemoglobin 30 25-34 pg Mean Corpuscular Hemoglobin Concent 34 32-36 g/dL Red Cell Distribution Width 12.9 10.0-14.5 % Platelet Count 293 130-400 10^3/uL Mean Platelet Volume 9.2 9.0-12.2 fL Immature Granulocyte % (Auto) 2 % Neutrophils (%) (Auto) 79 H 42-75 % Lymphocytes (%) (Auto) 11 L 12-44 % Monocytes (%) (Auto) 7 0-12 % Eosinophils (%) (Auto) 0 0-10 % Basophils (%) (Auto) 0 0-10 % Neutrophils # (Auto) 10.2 H 1.8-7.8 10^3/uL Lymphocytes # (Auto) 1.5 1.0-4.0 10^3/uL Monocytes # (Auto) 0.9 0.0-1.0 10^3/uL Eosinophils # (Auto) 0.0 0.0-0.3 10^3/uL Basophils # (Auto) 0.0 0.0-0.1 10^3/uL Immature Granulocyte # (Auto) 0.3 H 0.0-0.1 10^3/uL Prothrombin Time 14.4 12.2-14.7 SEC INR Comment 1.1 0.8-1.4 D-Dimer 0.89 H 0.00-0.49 UG/ML Sodium Level 131 L 135-145 MMOL/L Potassium Level 3.3 L 3.6-5.0 MMOL/L Chloride Level 96 L 98-107 MMOL/L Carbon Dioxide Level 22 21-32 MMOL/L Anion Gap 13 5-14 MMOL/L Blood Urea Nitrogen 21 H 7-18 MG/DL Creatinine 1.26 0.60-1.30 MG/DL Estimat Glomerular Filtration Rate 42 BUN/Creatinine Ratio 17 Glucose Level 97 70-105 MG/DL Calcium Level 8.3 L 8.5-10.1 MG/DL Corrected Calcium 8.4 L 8.5-10.1 MG/DL Total Bilirubin 1.0 0.1-1.0 MG/DL Aspartate Amino Transf (AST/SGOT) 27 5-34 U/L Alanine Aminotransferase (ALT/SGPT) 35 0-55 U/L Alkaline Phosphatase 83 40-136 U/L Troponin I < 0.028 <0.028 NG/ML C-Reactive Protein High Sensitivity 6.84 H 0.00-0.50 MG/DL Total Protein 7.5 6.4-8.2 GM/DL Albumin 3.9 3.2-4.5 GM/DL Procalcitonin 0.09 <0.10 NG/ML My Orders Orders - SARAH PERERA APRN Fibrin Degradation Products (03/24/20 12:16) Cbc With Automated Diff (03/24/20 12:16) Comprehensive Metabolic Panel (03/24/20 12:16) Troponin I (03/24/20 12:16) Ekg Tracing (03/24/20 12:16) Chest 1 View, Ap/Pa Only (03/24/20 12:16) Ct Head/Cervical Spine Wo (03/24/20 12:16) Protime With Inr (03/24/20 12:16) Hs C Reactive Protein (03/24/20 12:21) Procalcitonin (Pct) (03/24/20 12:21) Meclizine Tablet (Antivert Tablet) (03/24/20 12:30) Covid-19 External Lab Results (03/24/20 13:08) Ns Iv 500 Ml (Sodium Chloride 0.9%) (03/24/20 13:45) Medications Given in ED Current Medications Medications Dose Ordered Sig/Michelet Route Start Time Stop Time Status Last Admin Dose Admin Meclizine HCl 25 mg ONCE ONCE PO 03/24/20 12:30 03/24/20 12:31 DC 03/24/20 13:27 25 MG Vital Signs/I&O 03/24/20 12:04 Temp 36.3 Pulse 79 Resp 18 B/P (MAP) 111/76 (88) Pulse Ox 95 O2 Delivery Room Air Capillary Refill : Less Than 3 Seconds Blood Pressure Mean: 88 Departure Impression Primary Impression: Dizziness Disposition: 01 HOME, SELF-CARE Condition: Stable Departure-Patient Inst. Decision time for Depature: 13:55 Referrals: WELLINGTON DELAROSA MD (PCP/Family) Primary Care Physician Patient Instructions: Vertigo (a Type of Dizziness) (DC) Add. Discharge Instructions: 1. Return to ER for any concerns. See your doctor next week. Return to Er for any worsening. All discharge instructions reviewed with patient and/or family. Voiced understanding. Scripts Meclizine HCl (Meclizine HCl) 25 Mg Tablet 25 MG PO BID PRN for DIZZINESS, #14 TAB . Prov: SARAH PERERA MEMORANDUM STATEMENT CLERK 03/24/20 SARAH PERERA APRN Mar 24, 2020 12:18
[2020-03-24] MEDS ORDERED: MECLIZINE 25 MG (ANTIVERT) TAB PO ONE (12:30)
[2020-03-24 12:50] LABS: BASOPHILS % (AUTO) 0 % (0-10); EOSINOPHILS % (AUTO) 0 % (0-10); HEMATOCRIT 43 % (35-52); HEMOGLOBIN 14.5 g/dL (11.5-16.0); LYMPHOCYTES # (AUTO) 1.5 10^3/uL (1.0-4.0); LYMPHOCYTES % (AUTO) 11 % (12-44); MEAN CORPUSCULAR HEMOGLOBIN 30 pg (25-34); MEAN CORPUSCULAR HGB CONC 34 g/dL (32-36); MEAN CORPUSCULAR VOLUME 90 fL (80-99); MEAN PLATELET VOLUME 9.2 fL (9.0-12.2); MONOCYTES # (AUTO) 0.9 10^3/uL (0.0-1.0); MONOCYTES % (AUTO) 7 % (0-12); NEUTROPHILS # (AUTO) 10.2 10^3/uL (1.8-7.8); NEUTROPHILS % (AUTO) 79 % (42-75); PLATELET COUNT 293 10^3/uL (130-400); WHITE BLOOD COUNT 12.8 10^3/uL (4.3-11.0)
[2020-03-24 13:00] LABS: ALBUMIN 3.9 GM/DL (3.2-4.5)
[2020-03-24 13:01] LABS: CHLORIDE 96 MMOL/L (98-107); POTASSIUM 3.3 MMOL/L (3.6-5.0); SODIUM 131 MMOL/L (135-145)
[2020-03-24 13:02] LABS: CALCIUM 8.3 MG/DL (8.5-10.1)
--- NOTE | 2020-03-24 13:02 | Diagnostic Imaging Report ---
INDICATION: Syncope. EXAMINATION: Portable chest at 12:56 p.m. FINDINGS: Heart size and pulmonary vascularity are normal. Lungs are clear. There are no effusions or pneumothoraces. IMPRESSION: Negative chest. Dictated by: Dictated on workstation # [id number]
[2020-03-24 13:03] LABS: GLUCOSE 97 MG/DL (70-105); TOTAL PROTEIN 7.5 GM/DL (6.4-8.2)
[2020-03-24 13:04] LABS: CARBON DIOXIDE 22 MMOL/L (21-32)
[2020-03-24 13:06] LABS: ALKALINE PHOSPHATASE 83 U/L (40-136)
[2020-03-24 13:07] LABS: CREATININE SERUM 1.26 MG/DL (0.60-1.30); GFR ESTIMATED 42
[2020-03-24 13:08] LABS: BUN/CREATININE RATIO 17
[2020-03-24 13:09] LABS: ALANINE AMINOTRANSFERASE 35 U/L (0-55)
[2020-03-24 13:12] LABS: FIBRIN DEGRADATION PRODUCTS 0.89 UG/ML (0.00-0.49); INR 1.1 (0.8-1.4); PROTHROMBIN TIME PATIENT 14.4 SEC (12.2-14.7)
--- NOTE | 2020-03-24 13:29 | Diagnostic Imaging Report ---
PROCEDURE: CT head and CT cervical spine without contrast. TECHNIQUE: Multiple contiguous axial images were obtained through the brain and cervical spine without the use of intravenous contrast. Sagittal and coronal reformations through the cervical spine were then performed. Auto Exposure Controls were utilized during the CT exam to meet ALARA standards for radiation dose reduction. INDICATION: Syncope. There are no prior studies available for comparison. CT HEAD: There is no mass, shift of the midline or hemorrhage to suggest an acute intracranial abnormality. There is no sign of an asymmetric hyperdense vessel. The ventricles are not abnormally dilated. There is mild cortical atrophy present. The degree of atrophy is consistent with the patient's age. The bone windows show no evidence for a fracture or for a destructive lesion. The orbits are symmetrical and within normal limits. There is mild mucosal thickening in the right maxillary antrum. The sinuses where visualized are otherwise clear. IMPRESSION: 1. There is no evidence for an acute intracranial abnormality. 2. If clinical concern regarding an underlying abnormality persists, then MRI would be recommended for further study. CT CERVICAL SPINE: The reconstructed parasagittal images show mild reversal of the normal lordosis of the cervical spine. This may be secondary to muscle spasm and/or positioning. There is an interbody device in place at the C6-C7 level. The orthopedic hardware seems to be in good position. There is also fairly severe degenerative disc and bony disease at C3-C4, C4-C5 and C5-C6. There is no evidence for a high-grade central stenosis however. There is no fracture or acute bony abnormality identified. There is no sign of retropharyngeal edema. The thyroid gland was obscured by streak artifact. The lung apices are clear. IMPRESSION: 1. There is no evidence for an acute bony abnormality. 2. There are degenerative disc and bony disease in the mid and lower cervical spine and there has been a prior surgical procedure at the C6-C7 level. 3. These results were discussed with Dorian Walsh APRN. Dictated by: Dictated on workstation # [id number]
[2020-03-24] MEDS ORDERED: MECL-149 PO ×2 (13:56→14:08)
[2020-03-24] MEDS: NS IV 500 ML 500 ML IV SCH ×2 (14:10→15:47)
[2020-03-24 14:40] VITALS: BP 151/87
== END 2020-03-24 14:40 | disposition home or self-care (01) ==
LOC: EDUNIT# 11:56 → ER 11:58
DX: R42 Dizziness and giddiness (principal); E03.9 Hypothyroidism, unspecified; F32.9 Major depressive disorder, single episode, unspecified; E78.00 Pure hypercholesterolemia, unspecified; Z79.890 Hormone replacement therapy
CPT/HCPCS: 36415; 70450; 71045; 72125; 80053; 84145; 84484; 85025; 85379; 85610; 86141; 93005

== ENCOUNTER → 2020-10-05 | Outpatient (CLI) | payer MEDICARE, OTHER ==
[~2020-10-05] MED LIST changes: +MECL-149 PO
--- NOTE | 2020-10-05 12:20 | Diagnostic Imaging Report ---
Indication: Routine screening. Comparison is made with prior mammogram from 10/05/2019 and 10/01/2018. 2-D and 3-D bilateral screening mammography was performed with CAD. Both breasts are heterogeneously dense, limiting the sensitivity of mammography. Fibronodular parenchymal pattern appears to be stable. No dominant mass or malignant-appearing microcalcifications are seen. Axillae are unremarkable. IMPRESSION: BI-RADS Category 2 No mammographic features suspicious for malignancy are identified. ACR BI-RADS Category 2: Benign findings. Result letter will be mailed to the patient. Note: At least 10% of breast cancer is not imaged by mammography. Dictated by: Dictated on workstation # [id number]
== END ==
LOC: RAD 10:15
PROVIDERS: ATTEND Family Medicine
DX: Z12.31 Encounter for screening mammogram for malignant neoplasm of breast (principal)
CPT/HCPCS: 77063; 77067

== ENCOUNTER → 2020-10-12 | Outpatient (CLI) | payer MEDICARE, OTHER | LOC: CARD 11:30 | PROVIDERS: ATTEND Internal Medicine Cardiovascular Disease | DX: I34.0 Nonrheumatic mitral (valve) insufficiency (principal); R55 Syncope and collapse | CPT/HCPCS: 93225; 93226; 93306 ==

== ENCOUNTER → 2020-10-18 | Outpatient (CLI) | payer MEDICARE, OTHER ==
[~2020-10-18] VITALS: Ht 152 cm; Wt 64.0 kg
[~2020-10-18] MED LIST changes: +CATHETER FLUSH 10 ML SYR IV PRN; +REGADENOSON 0.4 MG/5 ML SYR (LEXISCAN) IV ONE
[2020-10-18 09:43] VITALS: BP 157/84
--- NOTE | 2020-10-18 14:14 | STRESS TEST ---
DATE OF SERVICE: 10/18/2020 RESTING AND POST REGADENOSON TECHNETIUM-99M TETROFOSMIN SPECT CT IMAGING ORDERING PHYSICIAN: Dr. Mayberry. PRIMARY PHYSICIAN: Dr. Abad Velez. CLINICAL DIAGNOSIS: Syncope. Baseline images were carried out after injection of 10.95 mCi of technetium-99m Tetrofosmin. This was followed by 0.4 mg regadenoson and 31 mCi of technetium-99m Tetrofosmin for stress imaging. The electrocardiogram showed sinus rhythm and this did not change significantly with regadenoson infusion. Sinus tachycardia was seen. The patient noted dizziness and lightheadedness and leg tingling following regadenoson infusion, which resolved in a few minutes. Review of images at rest and following stress does not indicate any significant perfusion defects consistent with significant myocardial ischemia or infarction. Gated images show normal global left ventricular systolic function with normal regional wall motion. Left ventricular ejection fraction is calculated to be 72%. CONCLUSIONS: 1. No evidence of significant myocardial ischemia or infarction on this study. 2. Normal regional wall motion. 3. Normal global left ventricular systolic function with a calculated ejection fraction 72%. Job ID: [id number] DocumentID: [id number] Dictated Date: 10/18/2020 13:30:49 Wooden Box Maker Date: 10/18/2020 13:41:16 Dictated By: PERFECTO MAYBERRY MD, MA, FACP, FACC,
== END ==
LOC: CARD 08:30
PROVIDERS: ATTEND Internal Medicine Cardiovascular Disease
DX: R55 Syncope and collapse (principal)
CPT/HCPCS: 78452; 93017; A9502

== ENCOUNTER 2021-05-16 08:00 | Day surgery (SDC) | payer MEDICARE, OTHER ==
[~2021-05-16] VITALS: Ht 152.4 cm; Wt 66.5 kg
[2021-05-16 07:22] VITALS: BP 156/81
[~2021-05-16 08:00] MED LIST changes: -CATHETER FLUSH 10 ML SYR IV PRN; +LIDOCAINE 1% INJ 50 ML (XYLOCAINE) VIAL ONE; -REGADENOSON 0.4 MG/5 ML SYR (LEXISCAN) IV ONE
--- NOTE | 2021-05-16 10:55 | OPERATIVE REPORT ---
DATE OF SERVICE: 05/16/2021 PREOPERATIVE DIAGNOSIS: Palpitations. POSTOPERATIVE DIAGNOSIS: Palpitations. PROCEDURE PERFORMED: Implantable loop recorder implantation. INDICATIONS FOR PROCEDURE: The patient is a 76-year-old lady, who has infrequent palpitations that are quite bothersome to her. DESCRIPTION OF PROCEDURE: Implantable loop recorder implantation was carried out today after having obtained an informed consent. The left prepectoral area was prepared and draped in the usual sterile fashion. Lidocaine 1% was used for local anesthesia. The tools provided with the [employer] LINQ II device were used to make a subcutaneous pocket anterior to the fourth intercostal space in which the device was placed. The serial number of the device is [id number]. The wound edges were closed using Dermabond and Steri-Strips. She tolerated the procedure well. Job ID: [id number] DocumentID: [id number] Dictated Date: 05/16/2021 08:30:14 Injection Molding Technician Date: 05/16/2021 10:55:29 Dictated By: PERFECTO PACHECO MD, MA, FACP, FACC,
== END 2021-05-16 08:45 | disposition home or self-care (01) ==
LOC: CATH 08:00
PROVIDERS: ATTEND Internal Medicine Cardiovascular Disease
DX: R00.2 Palpitations (principal); I34.0 Nonrheumatic mitral (valve) insufficiency; I65.23 Occlusion and stenosis of bilateral carotid arteries; R55 Syncope and collapse; I10 Essential (primary) hypertension; E03.9 Hypothyroidism, unspecified; E78.5 Hyperlipidemia, unspecified; Z79.890 Hormone replacement therapy; Z79.899 Other long term (current) drug therapy
CPT/HCPCS: 33285; C1764

== ENCOUNTER → 2021-10-25 | Outpatient (CLI) | payer MEDICARE, OTHER ==
[~2021-10-25] MED LIST changes: -LIDOCAINE 1% INJ 50 ML (XYLOCAINE) VIAL ONE
--- NOTE | 2021-10-25 13:40 | Diagnostic Imaging Report ---
INDICATION: Routine screening. COMPARISON: 10/05/2020 and 10/05/2019. TECHNIQUE: 2D and 3D bilateral screening mammography was performed with CAD. FINDINGS: Both breasts are heterogeneously dense, limiting the sensitivity of mammography. A cardiac loop recorder overlies the medial left breast tissues. There are scattered benign calcifications in both breasts. No mass or malignant-appearing microcalcifications are seen. The axillae are unremarkable. IMPRESSION: No mammographic features suspicious for malignancy are identified. ACR BI-RADS Category 2: Benign findings. Result letter will be mailed to the patient. Note: At least 10% of breast cancer is not imaged by mammography. Dictated by: Dictated on workstation # [id number]
== END ==
LOC: RAD 09:40
PROVIDERS: ATTEND Family Medicine
DX: Z12.31 Encounter for screening mammogram for malignant neoplasm of breast (principal)
CPT/HCPCS: 77063; 77067

== ENCOUNTER 2021-11-01 05:39 | Outpatient (CLI) | payer MEDICARE ==
[~2021-11-01] VITALS: Ht 152.4 cm; Wt 64.5 kg
== END 2021-11-01 09:28 | disposition home or self-care (01) ==
LOC: PREOP 05:39
PROVIDERS: ATTEND Internal Medicine
DX: Z01.818 Encounter for other preprocedural examination (principal)

== ENCOUNTER 2021-11-03 09:22 | Day surgery (SDC) | payer MEDICARE, OTHER ==
--- NOTE | 2021-11-01 08:21 | HISTORY AND PHYSICAL ---
DATE OF SERVICE: PANENDOSCOPY HISTORY AND PHYSICAL HISTORY OF PRESENT ILLNESS: The patient is a 76-year-old white female referred by Dr. Velez for colonoscopy due to past history of colon polyps as well as diagnostic EGD due to history of heartburn with dysphagia to solids noted over the past several months. She denies any difficulty with liquids. She denies weight loss, melena or bright red blood per rectum. She does report intermittent diarrhea that appeared to follow cholecystectomy 4 to 5 years ago. Previous to this, she had more issues with constipation. Does not recall any chronic issues with diarrhea in the distant past. PAST MEDICAL HISTORY: Significant for cervical stenosis that resulted in cervical fusion, hypothyroidism on replacement, hypertension with no known history of vascular disease and gout. PAST SURGICAL HISTORY: She had cholecystectomy 4 to 5 years ago, C-spine fusion surgery greater than 5 years ago and a past history of total abdominal hysterectomy with bilateral salpingo-oophorectomy for benign reasons over 20 years ago. SOCIAL HISTORY: She is . No past smoking history and no significant alcohol intake. FAMILY HISTORY: She is not aware of any family history for colon cancer or GI tract malignancy. REVIEW OF SYSTEMS: CONSTITUTIONAL: Denies night sweats, chills, fever, or change in weights. GASTROINTESTINAL: As noted in the HPI as well as the fact that while her diarrhea is a bit better over the past 2 weeks for unexplained reasons with no reported antibiotic use. It is not uncommon for her to have intermittent fecal incontinence when she is having bouts of diarrhea and will go 8 to 10 a times a day without evidence for blood. PULMONARY: Denies cough, wheezing or shortness of breath. CARDIOVASCULAR: Denies orthopnea, PND, pedal edema or chest discomfort. PHYSICAL EXAMINATION: GENERAL: Reveals a pleasant white female, appears to be in no acute distress. VITAL SIGNS: Weight 142 pounds, blood pressure 142/82. HEENT: Unremarkable. Sclerae nonicteric. CHEST: Clear. CARDIOVASCULAR: Reveals a regular rate and rhythm without significant murmur, S3 or S4. ABDOMEN: Soft, supple without mass, organomegaly or tenderness. No bruits noted. EXTREMITIES: Reveal no cyanosis, clubbing or edema. ASSESSMENT: The patient is being set up for surveillance colonoscopy due to past history of colon polyps and diagnostic EGD due to history of reflux sounding symptoms with dysphagia to solids. Prep instructions were given. Electronic medical record reviewed and questions answered. I thank you for the referral of this pleasant lady. Job ID: [id number] DocumentID: [id number] Dictated Date: 10/30/2021 11:38:32 Still Operator Whiskey Date: 10/30/2021 11:56:16 Dictated By: ANABELLE THORNE MD
[2021-11-03] VITALS (7 sets, daily range): BP systolic 94–158; BP diastolic 61–84
[~2021-11-03] VITALS: Ht 152.4 cm; Wt 64.5 kg
[2021-11-03] MEDS ORDERED: LACTATED RINGERS 1,000 ML IV STA (09:23)
[2021-11-03] MEDS ORDERED: HURRICAINE EXT TUBE (BENZOCAINE) XX PRN (09:30)
--- NOTE | 2021-11-03 09:55 | Pre-Op Note & Conscious Sedat ---
Pre-Operative Progress Note Date H&P Reviewed: Nov 03, 2021 Time H&P Reviewed: 09:54 History & Physical: H&P Reviewed, Patient Examed, No changes noted Pre-Op Diagnosis: screening colon egd dysphagia Conscious Sedation Pre-Proced ASA Score 2 For ASA 3 and 4: Consider anesthesia and medical clearance. Also, for patients with a history of failed moderate sedation consider anesthesia. Airway Lungs Heart ASA score ASA 1: a normal healthy patient ASA 2: a patient with a mild systemic disease (mid diabetes, controlled hypertension, obesity ASA 3: a patient with a severe systemic disease that limits activity (angina, COPD, prior Myocardial infarction) ASA 4: a patient with an incapacitating disease that is a constant threat to life (CHF, renal failure) ASA 5: a moribund patient not expected to survive 24 hrs. (ruptured aneurysm) ASA 6: a declared brain- patient whose organs are being harvested. For emergent operations, add the letter E after the classification Mallampati Classification Grade 2 Sedation Plan Analgesia, Amnesia, Plan communicated to team members, Discussed options with patient/fam, Discussed risks with patient/fam The patient is an appropriate candidate to undergo the planned procedure, sedation, and anesthesia. The patient immediately re-assessed prior to indication. ANABELLE THORNE MD Nov 03, 2021 09:55
[2021-11-03] MEDS ORDERED: MIDAZOLAM 2 MG/2 ML (VERSED) VIAL ONE (10:25)
[2021-11-03] MEDS ORDERED: PROPOFOL INJECTION 50 ML IV ONE (10:25)
--- NOTE | 2021-11-03 11:02 | Progress Note-Post Operative ---
Post-Procedure Note Physician (s)/Oyster Sorter (s) Physician ANABELLE THORNE MD Pre-Procedure Diagnosis Pre-Procedure Diagnosis: screening colon egd dysphagia Post-Procedure Diagnosis Post-operative diagnosis: normal EGD one hyperplastic polyp prox rectum removed via cold polypectomy otherwise normal colon. ANABELLE THORNE MD Nov 03, 2021 11:02
--- NOTE | 2021-11-03 12:41 | Anesthesia-General Post-Op ---
MAC Patient Condition Mental Status/LOC: Same as Preop Cardiovascular: Satisfactory Nausea/Vomiting: Absent Respiratory: Satisfactory Pain: Controlled Complications: Absent Post Op Complications Complications None Follow Up Care/Instructions Patient Instructions None needed. Anesthesiology Discharge Order Discharge Order Patient is doing well, no complaints, stable vital signs, no apparent adverse anesthesia problems. No complications reported per nursing. KYLER SCRUGGS CRNA Nov 03, 2021 12:41
--- NOTE | 2021-11-03 17:32 | OPERATIVE REPORT ---
DATE OF SERVICE: PANENDOSCOPY SUMMARY INDICATION FOR THE PROCEDURE: EGD is performed for reports of dysphagia, colonoscopy surveillance, and history of colon polyps with history of intermittent diarrhea. DESCRIPTION OF PROCEDURE: The patient was placed in the left lateral decubitus position. The endoscope was inserted in the oral cavity and under direct visualization, the esophagus was intubated. The endoscope was passed down the esophagus through stomach and second portion of the duodenum. Careful inspection was made as the endoscope was withdrawn. FINDINGS: The posterior pharynx, epiglottis, true and false vocal folds and arytenoid aperture were unremarkable to gross inspection. The proximal, mid and distal esophagus were unremarkable. The Z line was distinct. The biopsy was obtained and submitted for histopathology. There was a mild amount of erythema without evidence for erosive esophagitis. The cardia, fundus, antrum, pylorus, pyloric channel, duodenal bulb, and second portion of the duodenum were unremarkable with normal-appearing villous architecture. ASSESSMENT: Mild erythema at the Z-line without evidence for erosive esophagitis, otherwise normal EGD evaluation. No evidence for extrinsic compression of the esophagus. We then proceeded with colonoscopy. Prior to undergoing colonoscopy, a digital rectal evaluation was performed. Anal sphincter tone was normal and the perianal reflex was intact. The patient was sedated, does appear to have some mild rectal prolapse. Because of the sedation, the Valsalva maneuver was not performed. No abnormalities were noted on digital inspection of the anal canal or distal rectal vault. The colonoscope was then inserted into the rectum and under direct visualization advanced to the cecum. Cecum was identified by identification of the ileocecal valve and cecal strap. Photographic documentation was obtained. A careful inspection was made as colonoscope was withdrawn. FINDINGS: There was no evidence for internal or external hemorrhoids. papilla was a little bit prominent without inflammatory change noted on retroflex view. One small 3 mm proximal rectal polyp was noted. It was removed in its entirety via cold forceps polypectomy. Several small to medium sigmoid diverticulum were present with one fecalith. No evidence for colonic diverticulitis was noted. The descending colon, splenic flexure, transverse colon, hepatic flexure, ascending colon, and cecum were unremarkable. ASSESSMENT: Mild diverticular disease confined to the sigmoid colon was present without evidence for diverticulitis. One 3 mm polyp was removed via cold polypectomy from the proximal rectum and the patient does appear to have some mild rectal prolapse without ulceration. Biopsy was obtained from the rectum and submitted for microscopic colitis considering the history of diarrhea. Further recommendations pending pathology report. The patient was reassured by today's findings. I thank you for the referral of this pleasant lady. Job ID: [id number] DocumentID: [id number] Dictated Date: 11/03/2021 11:07:34 Record Tester Date: 11/03/2021 17:30:38 Dictated By: ANABELLE THORNE MD
== END 2021-11-03 12:17 | disposition home or self-care (01) ==
LOC: ENDO 09:22
PROVIDERS: ATTEND Internal Medicine
DX: Z12.11 Encounter for screening for malignant neoplasm of colon (principal); K63.5 Polyp of colon; K22.89 Other specified disease of esophagus; R13.10 Dysphagia, unspecified

== ENCOUNTER 2021-12-07 13:09 | Emergency (ER) | payer MEDICARE, OTHER ==
[~2021-12-07] VITALS: Ht 152.4 cm; Wt 64.8 kg
--- NOTE | 2021-12-07 13:28 | ED Neurological Problem ---
General Chief Complaint: Neurological Problems Stated Complaint: NUMBNESS ON LEFT SIDE Nursing Triage Note: STATES SHE BEGAN HAVING NUMBNESS IN HER LIPS THEN LEFT FACE AND TINGLING LEFT ARM AND LEFT LEG AND TINGLING IN HER LEFT FOOT. 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 Patient states she had initial symptoms sometime around 1115 when she and her were leaving [place] [employer] she feels like it was just her upper and lower lip on the left side of her face that was numb and tingly. She states the symptoms lasted for about 15 to 30 minutes. Went away spontaneously and she became concerned when they recurred and included her upper and lower extremity on the left. She has recently had some dermatology treatments to her face and has had a chronic frontal headache that has worsened a little bit today. She denies vision changes speech difficulty or swallowing difficulty. She states she felt a little off balance when she had the numbness and tingling to the left leg. She felt a little weak. She states the symptoms have resolved at this time. Still has the headache. No recent fevers chills or GI illness. No COVID concerns. No problems with bowel or bladder. She is not a smoker. Takes no medications for hypertension. She is on thyroid supplementation. She recently had upper and lower endoscopy and colonoscopy with Dr. Rollins. She is also recently had extensive cardiac evaluation by Dr. Mayberry including echo, carotid ultrasounds, loop recorder implantation. No arrhythmias found on the loop recorder. She states no pathology on her echo or carotids. She does not take daily baby aspirin. All other review of systems reviewed and negative except as stated. Timing/Duration: 1-3 hours Severity: mild Associated Symptoms: other (mild headache; weakness left leg; numb tingly left UE, LE and face) Allergies and Home Medications Allergies Coded Allergies: No Known Drug Allergies (Unverified , 12/07/21) Patient Home Medication List Home Medication List Reviewed: Yes Atorvastatin Calcium (Atorvastatin Calcium) 40 Mg Tablet, 40 MG PO DAILY, (Reported) Entered as Reported by: CELSA LAL on 05/01/18 1016 Fluoxetine HCl (Prozac) 20 Mg Capsule, 20 MG PO DAILY, (Reported) Entered as Reported by: CELSA LAL on 05/01/18 1016 Levothyroxine Sodium (Levothyroxine Sodium) 75 Mcg Tablet, 75 MCG PO DAILY, (Reported) Entered as Reported by: CELSA LAL on 05/01/18 1016 Meclizine HCl (Meclizine HCl) 25 Mg Tablet, 25 MG PO BID PRN for DIZZINESS Prescribed by: SARAH PERERA on 03/24/20 1408 Review of Systems Review of Systems Constitutional: see HPI Eyes: No Symptoms Reported Ears, Nose, Mouth, Throat: no symptoms reported Respiratory: no symptoms reported Cardiovascular: no symptoms reported Gastrointestinal: no symptoms reported Genitourinary: no symptoms reported Musculoskeletal: no symptoms reported Skin: no symptoms reported Psychiatric/Neurological: Headache, Numbness All Other Systems Reviewed Negative Unless Noted: Yes Past Ttkotyl-Wygoxf-Bxaxis Hx Patient Social History Tobacco Use?: No Use of E-Cig and/or Vaping dev: No Substance use?: No Alcohol Use?: Yes Alcohol Frequency: Couple times a week Immunizations Up To Date Influenza Vaccine Up-to-Date: No; Not Current First/Initial COVID19 Vaccinat: 2020 Second COVID19 Vaccination Bartolo: 2020 Third COVID19 Vaccination Date: 2020 Seasonal Allergies Seasonal Allergies: No Past Medical History Surgeries: Yes (C SPINE FUSION) Gallbladder, Hysterectomy Respiratory: No Cardiac: Yes 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, Syncope 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 0.0oz. 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 tested, no motor/sensory deficits, alert, normal mood/affect, oriented x 3; No abnormal cerebellar tests, No abnor mal cab starter II-XII, No EOM palsy, No facial droop, No motor weakness, No sensory deficit; other (normal ROMBERG, normal F-N; ) Crainal Nerves: normal hearing, normal speech, PERRL Coordination/Gait: normal finger to nose, negative Romberg's sign Motor/Sensory: no motor deficit, no sensory deficit, no pronator drift Skin: normal color, warm/dry, other (healing scabbed lesions to the face; no cellulitis) Stroke NIH Stroke Scale Assessment Select: Initial Level of Consciousness: 0=Alert (0), Level of Consciousness- Questions: 0=Answers both month/age (0), LOC Commands: 0=Performs both tasks (0), Gaze: Normal (0), Visual Dykes: 0=No visual loss (0), Facial Movement (Facial Paresis): 0=Normal symmetrical mnt (0), Motor Function-Arms Right: 0=No drift (0), Motor Function-Arms Left: 0=No drift (0), Motor Function-Legs Right: 0=No drift (0), Motor Function-Legs Left: 0=No drift (0), Limb Ataxia: 0=Absent (0), Sensory: 0=Normal:no loss (0), Best Language: 0=No aphasia (0), Dysarthria: 0=Normal (0), Extinction & Inattention: 0=No abnormality (0), Total: 0 Stroke Thrombolytic Exclusion Age 18 or Over: Yes Progress/Results/Core Measures Results/Orders Lab Results Laboratory Tests Test 12/07/21 13:20 12/07/21 14:45 Range/Units White Blood Count 7.4 4.3-11.0 10^3/uL Red Blood Count 4.58 3.80-5.11 10^6/uL Hemoglobin 14.0 11.5-16.0 g/dL Hematocrit 41 35-52 % Mean Corpuscular Volume 90 80-99 fL Mean Corpuscular Hemoglobin 31 25-34 pg Mean Corpuscular Hemoglobin Concent 34 32-36 g/dL Red Cell Distribution Width 13.2 10.0-14.5 % Platelet Count 396 130-400 10^3/uL Mean Platelet Volume 9.4 9.0-12.2 fL Immature Granulocyte % (Auto) 0 % Neutrophils (%) (Auto) 62 42-75 % Lymphocytes (%) (Auto) 28 12-44 % Monocytes (%) (Auto) 6 0-12 % Eosinophils (%) (Auto) 3 0-10 % Basophils (%) (Auto) 1 0-10 % Neutrophils # (Auto) 4.6 1.8-7.8 10^3/uL Lymphocytes # (Auto) 2.1 1.0-4.0 10^3/uL Monocytes # (Auto) 0.4 0.0-1.0 10^3/uL Eosinophils # (Auto) 0.2 0.0-0.3 10^3/uL Basophils # (Auto) 0.1 0.0-0.1 10^3/uL Immature Granulocyte # (Auto) 0.0 0.0-0.1 10^3/uL Prothrombin Time 13.6 12.2-14.7 SEC INR Comment 1.0 0.8-1.4 Activated Partial Thromboplast Time 32 24-35 SEC D-Dimer 0.58 H 0.00-0.49 UG/ML Sodium Level 138 135-145 MMOL/L Potassium Level 4.1 3.6-5.0 MMOL/L Chloride Level 107 98-107 MMOL/L Carbon Dioxide Level 17 L 21-32 MMOL/L Anion Gap 14 5-14 MMOL/L Blood Urea Nitrogen 16 7-18 MG/DL Creatinine 1.17 0.60-1.30 MG/DL Estimat Glomerular Filtration Rate 49 BUN/Creatinine Ratio 14 Glucose Level 164 H 70-105 MG/DL Calcium Level 9.5 8.5-10.1 MG/DL Corrected Calcium 9.3 8.5-10.1 MG/DL Total Bilirubin 0.6 0.1-1.0 MG/DL Aspartate Amino Transf (AST/SGOT) 35 H 5-34 U/L Alanine Aminotransferase (ALT/SGPT) 34 0-55 U/L Alkaline Phosphatase 89 40-136 U/L Troponin I < 0.028 <0.028 NG/ML Total Protein 8.1 6.4-8.2 GM/DL Albumin 4.3 3.2-4.5 GM/DL Urine Color YELLOW Urine Clarity CLEAR Urine pH 6.0 5-9 Urine Specific [place] 1.015 L 1.016-1.022 Urine Protein NEGATIVE NEGATIVE Urine Glucose (UA) NEGATIVE NEGATIVE Urine Ketones TRACE H NEGATIVE Urine Nitrite NEGATIVE NEGATIVE Urine Bilirubin NEGATIVE NEGATIVE Urine Urobilinogen 0.2 < = 1.0 MG/DL Urine Leukocyte Esterase NEGATIVE NEGATIVE Urine RBC (Auto) 2+ H NEGATIVE Urine RBC 5-10 H /HPF Urine WBC 0-2 /HPF Urine Squamous Epithelial Cells 0-2 /HPF Urine Crystals PRESENT H /LPF Urine Amorphous Sediment FEW GISELA URATES H /LPF Urine Bacteria NEGATIVE /HPF Urine Casts NONE /LPF Urine Mucus SMALL H /LPF Urine Culture Indicated NO My Orders Orders - KENDRICK GOODWIN MD Cbc With Automated Diff (12/07/21 13:37) Protime With Inr (12/07/21 13:37) Partial Thromboplastin Time (12/07/21 13:37) Comprehensive Metabolic Panel (12/07/21 13:37) Fibrin Degradation Products (12/07/21 13:37) Troponin I Marlene (12/07/21 13:37) Ua Culture If Indicated (12/07/21 13:37) Chest 1 View, Ap/Pa Only (12/07/21 13:37) Ekg Tracing (12/07/21 13:37) Nothing By Mouth (12/07/21 Lunch) Accucheck Stat ONCE (12/07/21 13:37) Ed Iv/Invasive Line Start (12/07/21 13:37) Ed Iv/Invasive Line Start (12/07/21 13:37) Vital Signs Stroke Patient Q15M (12/07/21 13:37) Ct Head Wo-R/O Stroke (12/07/21 13:37) O2 (12/07/21 13:37) Intake & Output 06,14,22 (12/07/21 13:37) Monitor-Rhythm Ecg Trace Only (12/07/21 13:37) Dysphagia Screening Tool Q10MX1 (12/07/21 13:37) Post Thrombolytic Adminstratio (12/07/21 13:37) Lipid Panel (12/08/21 06:00) Vital Signs/I&O 12/07/21 13:12 Temp 36.8 Pulse 81 Resp 20 B/P (MAP) 140/86 (104) Pulse Ox 95 O2 Delivery Room Air Blood Pressure Mean: 104 Progress Progress Note : Time: 14:48 Progress Note I discussed lab studies, EKG, chest x-ray CT of the head without contrast with her primary care physician, Dr. Wellington Delarosa. He is comfortable with discharge to home in light of the fact that she has had a significant work-up for restratification for acute CVA within the last 6 months. She has no ongoing complaints of facial or extremity numbness or weakness. She only complains of a little numbness to the fingertips of the left hand specifically fingers 3 and 4. Vital signs are stable. I will give her a full-strength aspirin here and I recommended that she continue a full-strength aspirin tablet daily until she follows up with Dr. Delarosa. No clinical or objective findings to warrant further studies from the emergency department at this time. No concerns for radiculopathy, sepsis, electrolyte abnormality or acute stroke. All questions are sought and answered. Patient is stable and improved at discharge. Initial ECG Impression Date: Dec 07, 2021 Initial ECG Impression Time: 14:04 Initial ECG Rate: 68 Initial ECG Rhythm: Normal Sinus Initial ECG Intervals: Normal Comment Q waves inferiorly leads III and aVF. Nonspecific ST-T wave changes across the precordium. No ectopy. No ST segment elevation or depression is noted Diagnostic Imaging Diagonstic Imaging: Xray Plain Films/CT/US/NM/MRI: chest Comments [facility]. [place], [place] NAME: CHRISTINA YADAV [facility] REC#: [id number] PT STATUS: REG ER : 1945 PHYSICIAN: KENDRICK GOODWIN MD ADMIT DATE: 12/07/21/ER Draft Date of Exam:12/07/21 CHEST 1 VIEW, AP/PA ONLY INDICATION: Left-sided numbness. Frontal chest obtained at 1:58 p.m. and compared to 03/24/2020. FINDINGS: Heart is borderline in size. There is a loop recorder over the chest wall. There is no focal infiltrate or pneumothorax or pleural fluid. IMPRESSION: Cardiomegaly. No focal infiltrate or pneumothorax or pleural fluid. Dictated on workstation # [id number] Dict: 12/07/21 1403 Trans: 12/07/211407 [id number] Interpreted by: KAYLEY HERNANDEZ MD Electronically signed by: Diagonstic Imaging: CT Comments [facility] [place] [place] NAME: CHRISTINA YADAV [facility] REC#: [id number] PT STATUS: REG ER : 1945 PHYSICIAN: KENDRICK GOODWIN MD ADMIT DATE: 12/07/21/ER Signed Date of Exam:12/07/21 CT HEAD WO-R/O STROKE EXAMINATION: CT head without contrast. TECHNIQUE: Multiple contiguous axial images were obtained through the brain without the use of intravenous contrast. All CT scans use one or more of the following dose optimizing techniques: automated exposure control, MA and/or KvP adjustment based on patient size and exam type or iterative reconstruction. HISTORY: Left-sided facial numbness. Left arm and leg numbness. COMPARISON: 03/24/2020. FINDINGS: No large acute territorial ischemia, mass, or hemorrhage. No midline shift or mass effect. The ventricles, cortical sulci, and basilar cisterns are patent and unremarkable. The orbits are normal. Paranasal sinuses are normal. Mastoid air cells are clear. No soft tissue abnormality is seen. No osseus lesions or fractures are seen. IMPRESSION: 1. No large acute territorial ischemia, mass, or hemorrhage. Dictated by: Dictated on workstation # [id number] Dict: 12/07/21 1357 Trans: 12/07/211407 [facility] [id number] Interpreted by: MULUGETA TUBBS DO Electronically signed by: MULUGETA TUBBS DO 12/07/211407 Departure Impression Primary Impression: TIA (transient ischemic attack) Disposition: 01 HOME, SELF-CARE Condition: Improved Departure-Patient Inst. Decision time for Depature: 15:21 Referrals: WELLINGTON DELAROSA MD (PCP/Family) Primary Care Physician Patient Instructions: Transient Ischemic Attack ED Add. Discharge Instructions: Continue your daily medications as prescribed by Dr. Delarosa. Start taking a full-strength aspirin daily. If you have any return of symptoms or new, emergent or concerning symptoms develop please come back to the ED for reevaluation. Please call Dr. Delarosa's office this afternoon to schedule a follow-up appointment next week. Copy Copies To 1: WELLINGTON DELAROSA MD, KATHRYN M MD Dec 07, 2021 13:28
[2021-12-07 13:44] LABS: BASOPHILS # (AUTO) 0.1 10^3/uL (0.0-0.1); BASOPHILS % (AUTO) 1 % (0-10); EOSINOPHILS # (AUTO) 0.2 10^3/uL (0.0-0.3); EOSINOPHILS % (AUTO) 3 % (0-10); HEMATOCRIT 41 % (35-52); LYMPHOCYTES # (AUTO) 2.1 10^3/uL (1.0-4.0); LYMPHOCYTES % (AUTO) 28 % (12-44); MEAN CORPUSCULAR HEMOGLOBIN 31 pg (25-34); MEAN CORPUSCULAR HGB CONC 34 g/dL (32-36); MEAN CORPUSCULAR VOLUME 90 fL (80-99); MEAN PLATELET VOLUME 9.4 fL (9.0-12.2); MONOCYTES # (AUTO) 0.4 10^3/uL (0.0-1.0); MONOCYTES % (AUTO) 6 % (0-12); NEUTROPHILS # (AUTO) 4.6 10^3/uL (1.8-7.8); NEUTROPHILS % (AUTO) 62 % (42-75); PLATELET COUNT 396 10^3/uL (130-400); WHITE BLOOD COUNT 7.4 10^3/uL (4.3-11.0)
[2021-12-07 13:47] LABS: ALBUMIN 4.3 GM/DL (3.2-4.5)
[2021-12-07 13:48] LABS: CHLORIDE 107 MMOL/L (98-107); POTASSIUM 4.1 MMOL/L (3.6-5.0); SODIUM 138 MMOL/L (135-145)
[2021-12-07 13:49] LABS: CALCIUM 9.5 MG/DL (8.5-10.1)
[2021-12-07 13:50] LABS: GLUCOSE 164 MG/DL (70-105); TOTAL PROTEIN 8.1 GM/DL (6.4-8.2)
[2021-12-07 13:51] LABS: CARBON DIOXIDE 17 MMOL/L (21-32)
[2021-12-07 13:52] LABS: BILIRUBIN,TOTAL 0.6 MG/DL (0.1-1.0)
[2021-12-07 13:53] LABS: ALKALINE PHOSPHATASE 89 U/L (40-136)
[2021-12-07 13:54] LABS: CREATININE SERUM 1.17 MG/DL (0.60-1.30); GFR ESTIMATED 49
[2021-12-07 13:55] LABS: BUN/CREATININE RATIO 14
[2021-12-07 13:57] LABS: ALANINE AMINOTRANSFERASE 34 U/L (0-55)
--- NOTE | 2021-12-07 13:59 | Diagnostic Imaging Report ---
EXAMINATION: CT head without contrast. TECHNIQUE: Multiple contiguous axial images were obtained through the brain without the use of intravenous contrast. All CT scans use one or more of the following dose optimizing techniques: automated exposure control, MA and/or KvP adjustment based on patient size and exam type or iterative reconstruction. HISTORY: Left-sided facial numbness. Left arm and leg numbness. COMPARISON: 03/24/2020. FINDINGS: No large acute territorial ischemia, mass, or hemorrhage. No midline shift or mass effect. The ventricles, cortical sulci, and basilar cisterns are patent and unremarkable. The orbits are normal. Paranasal sinuses are normal. Mastoid air cells are clear. No soft tissue abnormality is seen. No osseus lesions or fractures are seen. IMPRESSION: 1. No large acute territorial ischemia, mass, or hemorrhage. Dictated by: Dictated on workstation # [id number]
[2021-12-07 14:00] LABS: FIBRIN DEGRADATION PRODUCTS 0.58 UG/ML (0.00-0.49); PROTHROMBIN TIME PATIENT 13.6 SEC (12.2-14.7)
--- NOTE | 2021-12-07 14:09 | Diagnostic Imaging Report ---
INDICATION: Left-sided numbness. Frontal chest obtained at 1:58 p.m. and compared to 03/24/2020. FINDINGS: Heart is borderline in size. There is a loop recorder over the chest wall. There is no focal infiltrate or pneumothorax or pleural fluid. IMPRESSION: Cardiomegaly. No focal infiltrate or pneumothorax or pleural fluid. Dictated by: Dictated on workstation # [id number]
[2021-12-07 14:56] LABS: BILIRUBIN,URINE NEGATIVE (NEGATIVE); CLARITY,URINE CLEAR; COLOR,URINE YELLOW; GLUCOSE, URINE (UA) NEGATIVE (NEGATIVE); KETONES,URINE TRACE (NEGATIVE); LEUKOCYTE ESTERASE ,URINE NEGATIVE (NEGATIVE); NITRITE,URINE NEGATIVE (NEGATIVE); PROTEIN,URINE NEGATIVE (NEGATIVE)
[2021-12-07 15:05] LABS: AMORPHOUS SEDIMENT,UR FEW AMOR URATES /LPF; BACTERIA,URINE NEGATIVE /HPF; SQUAMOUS EPITHELIAL CELL,UR 0-2 /HPF; WBC,URINE 0-2 /HPF
[2021-12-07 15:30] VITALS: BP 131/85
[2021-12-07] MEDS ORDERED: ASPIRIN 325 MG (5 GR) TABLET PO ONE (15:30)
== END 2021-12-07 15:30 | disposition home or self-care (01) ==
LOC: EDUNIT# 13:09 → ER 13:11
DX: G45.9 Transient cerebral ischemic attack, unspecified (principal); E03.9 Hypothyroidism, unspecified; Z79.890 Hormone replacement therapy
CPT/HCPCS: 36415; 70450; 71045; 80053; 81000; 84484; 85025; 85379; 85610; 85730; 93005; 93041

== ENCOUNTER → 2021-12-13 | Outpatient (CLI) | payer MEDICARE, OTHER ==
[~2021-12-13] MED LIST changes: +CATHETER FLUSH 10 ML SYR IV PRN; +HOLD METFORMIN - RECEIVED CONTRAST 20 ML VIAL IV SCH; +IOHEXOL 350 MG/ML 100 ML (OMNIPAQUE 350) VIAL IV ONE; +NS 100 ML (IVPB) BAG IV ONE
[2021-12-13 10:23] LABS: CALCIUM 9.6 MG/DL (8.5-10.1); CREATININE SERUM 1.01 MG/DL (0.60-1.30); POTASSIUM 3.8 MMOL/L (3.6-5.0)
--- NOTE | 2021-12-13 13:51 | Diagnostic Imaging Report ---
CLINICAL INDICATION: Patient with recurrent TIAs, left-sided paresthesias/numbness. Followup from 12/07/2021 ER visit. EXAMS: 1: Head CT with and without IV contrast. Auto Exposure Controls were utilized during the CT exam to meet ALARA standards for radiation dose reduction. 2: CT angiogram of the head and neck performed with 100 cc of Omnipaque 350 IV contrast. Sagittal and coronal MIP reformations were created for better visualization of vascular anatomy. CT angiogram was post-processed using RAPID LVO detection to include quantitative measurements of cerebral blood flow and automated results notification to the stroke and/or neurointerventional team. COMPARISON: Head CT without contrast dated 12/07/2021. FINDINGS: HEAD CT: Stable appearance of the brain parenchyma. There is no abnormal IV contrast enhancement on the post contrast CT angiogram images. There are subtle areas of chronic small vessel ischemic disease involving both cerebral hemispheres. Prominent perivascular space beneath the left basal ganglia region is again seen. The brain parenchymal volume appears appropriate for patient's age. There is no brain herniation or midline shift. There is no hydrocephalus. The basal cisterns are unremarkable. The extracranial soft tissues, skull, and orbits are unremarkable. Paranasal sinuses are clear. There is significant hypo-pneumatization of the bilateral mastoid air cells. CT ANGIOGRAM: There is dense contrast bolus seen within the left subclavian vein, innominate vein, and superior vena cava with skull streak artifact obscuring portions of the aortic arch and proximal great vessels. Three-vessel aortic arch is seen. The left subclavian artery, brachiocephalic artery, and right subclavian artery are patent. The right common carotid artery, right ECA, and cervical right ICA are patent. Tortuous cervical right ICA is noted. The left common carotid artery is patent. The left ECA shows no significant stenosis. There is atherosclerotic disease involving the origin and cervical left ICA bulb. There is localized 50-69% stenosis involving the origin of the cervical left ICA bulb. The remainder of the cervical left ICA is patent. The petrous, cavernous, and supraclinoid ICA are patent. The bilateral ACAs and distal branches show no significant stenosis. The bilateral MCAs and distal branches show no significant stenosis. There is 50-69% stenosis involving the origin of the cervical right vertebral artery. The remainder of the cervical right vertebral artery is patent. The left cervical vertebral artery is patent. The intradural bilateral vertebral arteries, right PICA, and suspected left AICA/PICA are patent. The basilar artery and bilateral superior cerebellar arteries are patent. There is a grossly 1 cm long area of severe stenosis involving the distal aspect of the right P2 HALL SUPERVISOR. The right P3 HALL SUPERVISOR and distal branches are patent. The dural venous sinuses are patent. The neck soft tissue structures show no significant abnormality. There is atelectasis involving the upper lung venegas. There are degenerative spurs involving the cervical spine. There is solid bony bridging/fusion of the C6-C7 disk space region. IMPRESSION: 1: Stable CT scan of the brain with no evidence of acute intracranial process. 2: There is a short segment area of severe stenosis involving the distal aspect of the right P2 HALL SUPERVISOR. The right P3 HALL SUPERVISOR and distal branches are patent. 3: There is 50-69% stenosis involving the origin of the cervical left ICA bulb and origin of the cervical right vertebral artery. 4: The remainder of the [place] and neck vascular structures is patent. Dictated by: Dictated on workstation # [id number]
== END ==
LOC: RAD 09:43
PROVIDERS: ATTEND Family Medicine
DX: I65.29 Occlusion and stenosis of unspecified carotid artery (principal)
CPT/HCPCS: 36415; 70496; 70498; 80048

== ENCOUNTER → 2021-12-25 | Outpatient (CLI) | payer MEDICARE, OTHER ==
[~2021-12-25] MED LIST changes: -CATHETER FLUSH 10 ML SYR IV PRN; +CLOP75TA69 PO; +GADOTERATE 0.5 MMOL/ML (CLARISCAN) 15 ML VIAL IV ONE; -HOLD METFORMIN - RECEIVED CONTRAST 20 ML VIAL IV SCH; -IOHEXOL 350 MG/ML 100 ML (OMNIPAQUE 350) VIAL IV ONE; -NS 100 ML (IVPB) BAG IV ONE
--- NOTE | 2021-12-25 09:25 | Diagnostic Imaging Report ---
CLINICAL INDICATION: Patient with recent TIA and abnormal CT angiogram. A week ago, the patient had an episode of left-sided numbness which would come and go within minutes. Patient has had no problem since. EXAM: MRI of the brain performed without and with 12 cc of Clariscan IV. Sequences include axial T2, axial T1, axial FLAIR, axial gradient echo, DWI,, ADC map, axial T1 post IV contrast, coronal T1 fat-sat post IV contrast, and sagittal T1 post IV contrast. COMPARISON: CT angiogram of head/neck dated 12/13/2021. FINDINGS: There is no evidence of acute cerebral infarct, intracranial hemorrhage, or gross mass effect. There is no abnormal IV contrast enhancement. The brain parenchymal volume appears appropriate for patient's age. There are multiple focal and patchy areas of high T2 signal white matter changes involving both cerebral hemispheres, likely representing chronic small vessel ischemic disease. There is normal hand-white matter distinction. There is no significant midline shift or herniation. The [place] vascular structures show no gross abnormality as visualized. The pituitary gland, sella, and suprasellar regions are unremarkable as visualized. There is no evidence of hydrocephalus. The basal cisterns are unremarkable. The skull, extracranial soft tissue, and orbits are unremarkable. There is minimal mucosal thickening involving the ethmoid sinus and both maxillary sinuses. Temporal bones show no significant abnormality. IMPRESSION: 1: There is no evidence of acute intracranial process. There is no abnormal IV contrast enhancement. 2: Age-related brain parenchymal changes including chronic small vessel ischemic disease. Dictated by: Dictated on workstation # [id number]
== END ==
LOC: RAD 08:00
PROVIDERS: ATTEND Family Medicine
DX: I67.82 Cerebral ischemia (principal); G45.9 Transient cerebral ischemic attack, unspecified
CPT/HCPCS: 70553

== ENCOUNTER 2021-12-26 13:57 | Emergency (ER) | payer MEDICARE, OTHER ==
[~2021-12-26] VITALS: Ht 152.4 cm; Wt 63.5 kg
[~2021-12-26 13:57] MED LIST changes: -CLOP75TA69 PO; -GADOTERATE 0.5 MMOL/ML (CLARISCAN) 15 ML VIAL IV ONE
--- NOTE | 2021-12-26 14:53 | ED Neurological Problem ---
General Chief Complaint: Neuro-Stroke Like Symptoms Stated Complaint: NUMBNESS ON LEFT SIDE Nursing Triage Note: PT TO ED IN BY POV WITH C/O L SIDED NUMBNESS/WEAKNESS SINCE 0 YESTERDAY. PT ABLE TO AMB FROM WC TO BED. PT REPORTS NUMBNESS GETS WORSE WHEN SHE IS UP MOVING AROUND. PT HAD MRI DONE YESTERDAY OF HER BRAIN YESTERDAY BECAUSE SHE HAS A NARROW VESSEL. DENIES SILVERIO, DIZZINESS, PAIN, OR ANY OTHER SX AT THIS TIME. Source: patient, family Exam Limitations: no limitations (JUDITH BROCK) History of Present Illness Date Seen by Provider: Dec 26, 2021 Time Seen by Provider: 14:36 Initial Comments Patient is a 76 y/o F with history of hypothyroidism, high cholesterol who presents to the ER with for CC of left sided lip, arm, and leg numbness and weakness onset yesterday at 5 pm. She reports that she had something similar happen to her 2 weeks ago and was also seen in the ER here for it. States the episodes are intermittent, lasting 15-20 minutes at a time and moving a lot tends to trigger these episodes. At her last visit, she got a Head CT done with showed a "narrow vessel on the right side" and thinks this may have to do with her symptoms. She also had an MRI done here at [facility] yesterday in order to be treated over at . She states she does not have any pain at present except for a mild headache. Denies dizziness or tingling. Denies any recent trauma to head or spine. Timing/Duration: episodic Associated Symptoms: numbness in legs/feet, weakness (JUDITH BROCK) Allergies and Home Medications Allergies Coded Allergies: No Known Drug Allergies (Unverified , 12/07/21) Patient Home Medication List Home Medication List Reviewed: Yes (JUDITH BROCK) Atorvastatin Calcium (Atorvastatin Calcium) 40 Mg Tablet, 40 MG PO DAILY, (Reported) Entered as Reported by: CELSA LAL on 05/01/18 1016 Fluoxetine HCl (Prozac) 20 Mg Capsule, 20 MG PO DAILY, (Reported) Entered as Reported by: CELSA LAL on 05/01/18 1016 Levothyroxine Sodium (Levothyroxine Sodium) 75 Mcg Tablet, 75 MCG PO DAILY, (Reported) Entered as Reported by: CELSA LAL on 05/01/18 1016 Meclizine HCl (Meclizine HCl) 25 Mg Tablet, 25 MG PO BID PRN for DIZZINESS Prescribed by: SARAH PERERA on 03/24/20 1408 Review of Systems Review of Systems Constitutional: no symptoms reported Eyes: No Symptoms Reported Ears, Nose, Mouth, Throat: no symptoms reported Respiratory: No dyspnea on exertion, No short of breath Cardiovascular: No chest pain, No palpitations Gastrointestinal: no symptoms reported Genitourinary: no symptoms reported Musculoskeletal: No back pain, No joint pain, No muscle pain, No neck pain Skin: no symptoms reported Psychiatric/Neurological: Headache, Numbness (left lip, arm, leg), Weakness (JUDITH BROCK) Past Uowqqtt-Texmlr-Uxrsol Hx Patient Social History Tobacco Use?: No Use of E-Cig and/or Vaping dev: No Substance use?: No Alcohol Use?: No Pt feels they are or have been: No (JUDITH BROCK) Immunizations Up To Date Influenza Vaccine Up-to-Date: Yes; Up-to-Date First/Initial COVID19 Vaccinat: 2020 Second COVID19 Vaccination Bartolo: 2020 Third COVID19 Vaccination Date: 2020 (JUDITH BROCK) Seasonal Allergies Seasonal Allergies: No (JUDITH BROCK) Past Medical History Surgery/Hospitalization HX: HYPERTHYROID, HIGH CHOLESTEROL, SKIN CA Surgeries: Yes (C SPINE FUSION) Gallbladder, Hysterectomy Respiratory: No Cardiac: Yes 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, Syncope 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 0.0oz. 63.286991pn; 27.00 BMI Method: General Appearance: WD/WN, no apparent distress HEENT: PERRL/EOMI, normal ENT inspection, pharynx normal Neck: non-tender, full range of motion, supple, normal inspection Respiratory: chest non-tender, lungs clear, normal breath sounds, no respiratory distress, no accessory muscle use Cardiovascular: normal peripheral pulses, regular rate, rhythm, no murmur Extremities: normal range of motion, non-tender, no pedal edema, no calf tenderness, normal capillary refill Neurologic/Psychiatric: no motor/sensory deficits, alert, oriented x 3 Crainal Nerves: normal speech, PERRL Coordination/Gait: normal finger to nose, normal gait Motor/Sensory: no motor deficit, no sensory deficit, no pronator drift (JUDITH BROCK) Stroke NIH Stroke Scale Assessment Level of Consciousness: 0=Alert (0), Level of Consciousness-Questions: 0=Answers both month/age (0), LOC Commands: 0=Performs both tasks (0), Gaze: Normal (0), Visual Dykes: 0=No visual loss (0), Facial Movement (Facial Paresis): 0=Normal symmetrical mnt (0), Motor Function-Arms Right: 0=No drift (0), Motor Function-Arms Left: 0=No drift (0), Motor Function-Legs Right: 0=No drift (0), Motor Function-Legs Left: 0=No drift (0), Limb Ataxia: 0=Absent (0), Sensory: 0=Normal:no loss (0), Best Language: 0=No aphasia (0), Dysarthria: 0=Normal (0), Extinction & Inattention: 0=No abnormality (0), Total: 0 Stroke Thrombolytic Exclusion Age 18 or Over: Yes (JUDITH BROCK) Progress/Results/Core Measures Results/Orders Vital Signs/I&O 12/26/21 14:10 Temp 36.4 Pulse 68 Resp 14 B/P (MAP) 174/83 (113) Pulse Ox 96 O2 Delivery Room Air (KENDRICK GOODWIN MD) Blood Pressure Mean: 113 Progress Progress Note : Time: 15:22 Progress Note Patient seen and examined by me. I have reviewed and agree with the medical student's documentation. Patient is currently asymptomatic of "numbness" - She states it has waxed and waned all day, most recently having persisted for about 30 minutes. Had an MRI brain with and without yesterday. Close follow up with her PCP - Dr Delarosa. I called and spoke with Dr Forbes ( stroke Neuro) She stated that she would recommend baby aspirin and plavix for 21 days. And then switch back to baby aspirin only. SHe sstates with the work up the patient has had, that she meets no current indications for emergent intervention. She is not having symptoms of posterior cerebral artery stroke. SHe emphasized the need for strict risk factor modification including her statin, blood pressure control. Patient and her are advised of the plan of care. SHe is not having any concerning symptoms at this time Patient brings up that she thinks she may have a "pinched nerve" as well SHe states Dr Chester did a neck surgery on her a few years ago. SHe is wondering if she can have a "whole body scan". I advised that would be something to discuss with her primary care physician and also possibly Dr Chester - she might consider follow up with her as well. Patient and comfortable with plan of care. all quesitons are sought and answered.. (KENDRICK GOODWIN MD) Departure Impression Primary Impression: Paresthesia of left arm and leg Additional Impression: paresthesia of lip Disposition: 01 HOME, SELF-CARE Condition: Stable Departure-Patient Inst. Decision time for Depature: 15:28 (KENDRICK GOODWIN MD) Referrals: WELLINGTON DELAROSA MD (PCP/Family) Primary Care Physician Patient Instructions: Paresthesia (DC) Add. Discharge Instructions: Stop taking the full strength aspirin and you will start a baby aspirin daily. We are also adding Plavix to your medications; 75mg daily for 21 days. Then after that you will just continue to take the baby aspirin. Be sure you are having your cholesterol checked and staying on your Atorvastatin every day. Good blood pressure control. Follow up as scheduled with Dr Delarosa. Return to the Emergency Department for any new, concerning or emergent complaints. Scripts Clopidogrel Bisulfate (Plavix) 75 Mg Tablet 75 MG PO DAILY for 21 Days, #21 TAB Prov: KENDRICK GOODWIN MD 12/26/21 Verification and Attestation of Medical Student E/M Service A medical student performed and documented this service in my presence. I reviewed and verified all information documented by the medical student and made modifications to such information, when appropriate. I personally performed the physical exam and medical decision making. Kendrick Goodwin, Dec 26, 2021,15:45 (KENDRICK GOODWIN MD) JUDITH BROCK Dec 26, 2021 14:53 KENDRICK GOODWIN MD Dec 26, 2021 15:27
[2021-12-26] MEDS ORDERED: CLOP75TA69 PO (15:30)
[2021-12-26 15:50] VITALS: BP 157/89
== END 2021-12-26 15:52 | disposition home or self-care (01) ==
LOC: EDUNIT# 13:57 → ER 13:58
DX: R20.2 Paresthesia of skin (principal); R20.0 Anesthesia of skin

== ENCOUNTER → 2022-07-16 | Outpatient (CLI) | payer MEDICARE, OTHER ==
[~2022-07-16] MED LIST changes: +CLOP-31 PO; +HOLD METFORMIN - RECEIVED CONTRAST 20 ML VIAL IV SCH; +IOHEXOL 350 MG/ML 100 ML (OMNIPAQUE 350) VIAL IV ONE; +NS 100 ML (IVPB) BAG IV ONE
[2022-07-16 09:14] LABS: CREATININE SERUM 1.19 MG/DL (0.60-1.30)
--- NOTE | 2022-07-16 14:26 | Diagnostic Imaging Report ---
PROCEDURE: CT angiography of the head with and without contrast. TECHNIQUE: Noncontrast CT of the head was obtained. Subsequently, after intravenous administration of contrast, thin section axial CT angiography of the head was performed. Source data was reformatted into multiple MIP reformats. Delayed postcontrast acquisition of the head was also acquired. Auto Exposure Controls were utilized during the CT exam to meet ALARA standards for radiation dose reduction. INDICATION: Right posterior cerebral artery occlusion. COMPARISON: CTA head and neck 12/13/2021 FINDINGS: Noncontrast head CT demonstrates mild generalized portable volume loss. No intracranial hemorrhage, mass effect, hydrocephalus or extra-axial fluid collections. No CT evidence of territorial infarction. CTA demonstrates stable moderate narrowing of the right P2 segment. No large vessel occlusion. No evidence of intracranial dissection or aneurysm. Dural venous sinuses are normally opacified. No acute osseous findings. Paranasal sinuses and mastoids are clear where seen. IMPRESSION: Stable moderate narrowing of the right P2 segment of the right posterior cerebral artery. No new high-grade narrowing, aneurysm or dissection. Dictated by: Dictated on workstation # [id number]
== END ==
LOC: RAD 10:15
PROVIDERS: ATTEND Neurological Surgery
DX: Z01.812 Encounter for preprocedural laboratory examination (principal); I66.9 Occlusion and stenosis of unspecified cerebral artery
CPT/HCPCS: 36415; 70496; 82565; 84520

== ENCOUNTER 2022-09-27 11:36 | Observation (INO) | payer MEDICARE, OTHER ==
[2022-09-27] VITALS (7 sets, daily range): BP systolic 117–174; BP diastolic 64–93
[~2022-09-27] VITALS: Ht 152.4 cm; Wt 64.8 kg
[~2022-09-27 11:36] MED LIST changes: -HOLD METFORMIN - RECEIVED CONTRAST 20 ML VIAL IV SCH; -IOHEXOL 350 MG/ML 100 ML (OMNIPAQUE 350) VIAL IV ONE; -NS 100 ML (IVPB) BAG IV ONE
--- NOTE | 2022-09-27 11:53 | ED Neurological Problem ---
General Chief Complaint: Neurological Problems Stated Complaint: VISION TROUBLES Nursing Triage Note: ARRIVED VIA AMB TO ROOM 03 WITH COMPLAINT OF LOOSING 1/2 VISON ON BOTH EYES OFF AND ON STARTING ON SATURDAY OR SATURDAY. PT STATES SHE IS ALSO HAVING TROUBLE FOCUSING. ALSO COMPLAINS OF MILD NUMBESS LEFT ARM AND LIP BUT DENIES THIS AT THIS TIME. Source: patient Exam Limitations: no limitations History of Present Illness Date Seen by Provider: Sep 27, 2022 Time Seen by Provider: 11:51 Initial Comments Patient is a 77-year-old female who presents ED with bilateral vision changes. Symptoms started last or Saturday. She reports intermittent episodes where she loses vision out in her periphery. She describes it as more ahnd out in the periphery. This lasts for about 5 minutes. She had 2-3 episodes yeste rday as well as 2-3 episodes a day. 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 She follows Dr. Veras at [facility] who recommended for her to come to ED. She did have some numbness and tingling the left side of face left arm 10 minutes before arrival but that has improved. She denies of any current complaints such as visual lo ss, headache, dizziness, unilateral muscle weakness or sensory changes, chest pain, nausea, vomiting cough or shortness of breath. Not currently on anticoagulant. She has been on Plavix in the past Allergies and Home Medications Allergies Coded Allergies: No Known Drug Allergies (Unverified , 12/07/21) Patient Home Medication List Home Medication List Reviewed: Yes Aspirin (Aspirin EC) 81 Mg Tablet., 81 MG PO DAILY, (Reported) Entered as Reported by: MARCOS GARCIA on 09/27/221555 Last Action: Reviewed Atorvastatin Calcium (Atorvastatin Calcium) 40 Mg Tablet, 40 MG PO HS, (Reported) Entered as Reported by: CELSA LAL on 05/01/18 1016 Last Action: Reviewed Fluoxetine HCl (Fluoxetine HCl) 40 Mg Capsule, 40 MG PO DAILY, (Reported) Entered as Reported by: MARCOS GARCIA on 09/27/221555 Last Action: Reviewed Levothyroxine Sodium (Levothyroxine Sodium) 75 Mcg Tablet, 75 MCG PO DAILY, (Reported) Entered as Reported by: MARCOS GARCIA on 09/27/221555 Last Action: Reviewed [Biest/Dhea/Testo] CREAM..G., 0.5 ML TOP DAILY, (Reported) Entered as Reported by: MARCOS GARCIA on 09/27/22 155 Last Action: Reviewed [Progesterone] 200MG/ML CREAM.ML., 0.5 ML TOP DAILY, (Reported) Entered as Reported by: MARCOS GARCIA on 09/27/22 155 Last Action: Reviewed Discontinued Medications Clopidogrel Bisulfate (Plavix) 75 Mg Tablet, 75 MG PO DAILY Discontinued Reason: No Longer Taking Prescribed by: KENDRICK GOODWIN on 12/26/21 1530 Last Action: Discontinued Fluoxetine HCl (Prozac) 20 Mg Capsule, 20 MG PO DAILY, (Reported) Discontinued Reason: No Longer Taking Entered as Reported by: CELSA LAL on 05/01/18 1016 Last Action: Discontinued Levothyroxine Sodium (Levothyroxine Sodium) 75 Mcg Tablet, 75 MCG PO DAILY, (Reported) Discontinued Reason: No Longer Taking Entered as Reported by: CELSA LAL on 05/01/18 1016 Last Action: Discontinued Meclizine HCl (Meclizine HCl) 25 Mg Tablet, 25 MG PO BID PRN for DIZZINESS Discontinued Reason: No Longer Taking Prescribed by: SARAH PERERA on 03/24/20 1408 Last Action: Discontinued Review of Systems Review of Systems Constitutional: No chills, No diaphoresis, No malaise, No weakness Eyes: Denies Blindness; Blurred Vision Ears, Nose, Mouth, Throat: denies ear pain, denies ear discharge Respiratory: No cough, No dyspnea on exertion Cardiovascular: No chest pain Gastrointestinal: No abdominal pain, No diarrhea, No nausea, No vomiting Genitourinary: No decreased output, No discharge, No dysuria, No frequency Musculoskeletal: No back pain, No joint pain Skin: No change in color All Other Systems Reviewed Negative Unless Noted: Yes Past Yyaiyrj-Vqtwge-Uognlt Hx Patient Social History Tobacco Use?: No Substance use?: No Alcohol Use?: Yes Alcohol Frequency: Rarely Immunizations Up To Date First/Initial COVID19 Vaccinat: 2020 Second COVID19 Vaccination Bartolo: 2020 Third COVID19 Vaccination Date: 2020 Seasonal Allergies Seasonal Allergies: No Past Medical History Surgery/Hospitalization HX: HYPERTHYROID, HIGH CHOLESTEROL, SKIN CA Surgeries: Yes (C SPINE FUSION) Gallbladder, Hysterectomy Respiratory: No Cardiac: Yes 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, Syncope 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 0.0oz. 63.200267ts; 27.00 BMI Method: General Appearance: WD/WN, no apparent distress HEENT: PERRL/EOMI, normal ENT inspection, TMs normal, pharynx normal Neck: non-tender, full range of motion, supple, normal inspection Respiratory: chest non-tender, lungs clear, normal breath sounds, no respiratory distress, no accessory muscle use Cardiovascular: regular rate, rhythm, no edema, no gallop, no JVD Gastrointestinal: normal bowel sounds, non tender, soft, no organomegaly Extremities: normal range of motion, non-tender, normal inspection, no pedal ed ofelia, no calf tenderness Neurologic/Psychiatric: hr internship II-XII nml as tested, no motor/sensory deficits, alert, normal mood/affect, oriented x 3 Crainal Nerves: normal hearing, normal speech, PERRL Coordination/Gait: normal finger to nose, normal gait Motor/Sensory: no motor deficit, no sensory deficit, no pronator drift Skin: normal color, warm/dry Lymphatic: no adenopathy Stroke Onset of Symptoms Date of Onset of Symptoms: Sep 13, 2022 NIH Stroke Scale Assessment Select: Initial Level of Consciousness: 0=Alert (0), Level of Consciousness- Questions: 0=Answers both month/age (0), LOC Commands: 0=Performs both tasks (0), Gaze: Normal (0), Visual Dykes: 0=No visual loss (0), Facial Movement (Facial Paresis): 0=Normal symmetrical mnt (0), Motor Function-Arms Right: 0=No drift (0), Motor Function-Arms Left: 0=No drift (0), Motor Function-Legs Right: 0=No drift (0), Motor Function-Legs Left: 0=No drift (0), Limb Ataxia: 0=Absent (0), Sensory: 0=Normal:no loss (0), Best Language: 0=No aphasia (0), Dysarthria: 0=Normal (0), Extinction & Inattention: 0=No abnormality (0), Total: 0 Stroke Thrombolytic Exclusion Age 18 or Over: Yes Progress/Results/Core Measures Results/Orders Lab Results Laboratory Tests Test 09/27/22 11:56 Range/Units White Blood Count 6.3 4.3-11.0 10^3/uL Red Blood Count 4.50 3.80-5.11 10^6/uL Hemoglobin 13.9 11.5-16.0 g/dL Hematocrit 41 35-52 % Mean Corpuscular Volume 92 80-99 fL Mean Corpuscular Hemoglobin 31 25-34 pg Mean Corpuscular Hemoglobin Concent 34 32-36 g/dL Red Cell Distribution Width 13.8 10.0-14.5 % Platelet Count 347 130-400 10^3/uL Mean Platelet Volume 9.1 9.0-12.2 fL Immature Granulocyte % (Auto) 0 % Neutrophils (%) (Auto) 57 42-75 % Lymphocytes (%) (Auto) 28 12-44 % Monocytes (%) (Auto) 9 0-12 % Eosinophils (%) (Auto) 5 0-10 % Basophils (%) (Auto) 1 0-10 % Neutrophils # (Auto) 3.6 1.8-7.8 10^3/uL Lymphocytes # (Auto) 1.8 1.0-4.0 10^3/uL Monocytes # (Auto) 0.6 0.0-1.0 10^3/uL Eosinophils # (Auto) 0.3 0.0-0.3 10^3/uL Basophils # (Auto) 0.1 0.0-0.1 10^3/uL Immature Granulocyte # (Auto) 0.0 0.0-0.1 10^3/uL Prothrombin Time 13.4 12.2-14.7 SEC INR Comment 1.0 0.8-1.4 Activated Partial Thromboplast Time 29 24-35 SEC Sodium Level 139 135-145 MMOL/L Potassium Level 3.5 L 3.6-5.0 MMOL/L Chloride Level 107 98-107 MMOL/L Carbon Dioxide Level 25 21-32 MMOL/L Anion Gap 7 5-14 MMOL/L Blood Urea Nitrogen 13 7-18 MG/DL Creatinine 1.00 0.60-1.30 MG/DL Estimat Glomerular Filtration Rate 58 BUN/Creatinine Ratio 13 Glucose Level 89 70-105 MG/DL Calcium Level 9.1 8.5-10.1 MG/DL Corrected Calcium 8.9 8.5-10.1 MG/DL Total Bilirubin 0.6 0.1-1.0 MG/DL Aspartate Amino Transf (AST/SGOT) 24 5-34 U/L Alanine Aminotransferase (ALT/SGPT) 28 0-55 U/L Alkaline Phosphatase 99 40-136 U/L Troponin I < 0.028 <0.028 NG/ML Total Protein 7.8 6.4-8.2 GM/DL Albumin 4.2 3.2-4.5 GM/DL My Orders Orders - TOMMY SANTOS PA Cbc With Automated Diff (09/27/22 11:49) Protime With Inr (09/27/22 11:49) Partial Thromboplastin Time (09/27/22 11:49) Comprehensive Metabolic Panel (09/27/22 11:49) Troponin I Kleberg (09/27/22 11:49) Chest 1 View, Ap/Pa Only (09/27/22 11:49) Ekg Tracing (09/27/22 11:49) Ed Iv/Invasive Line Start (09/27/22 11:49) Vital Signs Stroke Patient Q15M (09/27/22 11:49) Ct Head Wo-R/O Stroke (09/27/22 11:49) Monitor-Rhythm Ecg Trace Only (09/27/22 11:49) Dysphagia Screening Tool [id number] (09/27/22 11:49) Ct Angio Head/Neck (09/27/22 12:29) Iohexol Injection (Omnipaque 350 Mg/Ml 1 (09/27/22 13:00) Received Contrast (Hold Metformin- Contr (09/27/22 13:00) Ns (Ivpb) 100 Ml (Sodium Chloride 0.9% 1 (09/27/22 13:00) Clopidogrel Tablet (Clopidogrel Tablet) (09/27/22 14:00) Ed Admission (Communication) (09/27/22 13:48) Medications Given in ED Current Medications Medications Dose Ordered Sig/Michelet Route Start Time Stop Time Status Last Admin Dose Admin Clopidogrel Bisulfate 300 mg ONCE ONCE PO 09/27/22 14:00 09/27/22 14:01 DC 09/27/22 14:05 300 MG Iohexol 75 ml ONCE ONCE IV 09/27/22 13:00 09/27/22 13:01 DC 09/27/22 12:59 75 ML Sodium Chloride 100 ml ONCE ONCE IV 09/27/22 13:00 09/27/22 13:01 DC 09/27/22 12:59 80 ML Vital Signs/I&O 09/27/22 11:44 Temp 36.2 Pulse 71 Resp 16 B/P (MAP) 146/104 (118) Pulse Ox 94 O2 Delivery Room Air Blood Pressure Mean: 118 Comment Sinus rhythm, low QRS voltage in pericardial leads, Q waves noted in lead II and aVF. 63 bpm, QRS duration 80 MS, QTc 403 MS. Departure Communication (PCP) History of TIA. Known history of right posterior cerebral artery stenosis. She follows Dr. Veras neurologist at [facility]. She does take a baby aspirin per day as well as atorvastatin. No history of diabetes, hypertension. Patient reports bilateral vision changes. Intermittent since last . More prominent over the past 2 days. Last episode occurred about 10 minutes before arrival. She had bilateral blurry vision described as hand that lasted 5 minutes with numbness and tingling to the left side of face and left arm which was new compared to her other episodes with the numbness to her upper extremity and left side of face. Patient on arrival no acute distress. Vital signs stable. NIH was 0. Initial CT scan with stroke work-up. CT scan of the head was unremarkable. CBC, CMP grossly unremarkable. EKG without evidence of arrhythmia, ST elevation or depression. Normal cardiac work-up no specific chest pain or shortness of breath with the symptoms. Coags unremarkable. CT angio of the head and neck which did not note any severe stenosis, dissection or occlusion. Patient was discussed with Dr. Zurita neurologist at [facility]. She did not recommend any emergent transfer or emergent intervention at this time. She suggest admitting for TIA work-up. Not necessarily concern for stroke with bilateral peripheral visual changes however due to the numbness and tingling that she experienced today she recommends further work-up with MRI. She suggest loading dose of Plavix 300 mg at this time and 75 mg for 21 days. Follow-up with Dr. Veras for further evaluation and after admission. Patient was discussed with Dr. Vergara hospitalist who agreed to accept the patient for TIA work-up. Patient remained asymptomatic. Impression Primary Impression: Stroke-like symptoms Disposition: ADMITTED INPATIENT Condition: Stable Admissions Decision to Admit Reason: Admit from ER (General) Decision to Admit/Date: Sep 27, 2022 Time/Decision to Admit Time: 13:48 Departure-Patient Inst. Referrals: WELLINGTON DELAROSA MD (PCP/Family) Primary Care Physician TOMMY SANTOS Sep 27, 2022 11:53
[2022-09-27 12:02] LABS: BASOPHILS # (AUTO) 0.1 10^3/uL (0.0-0.1); BASOPHILS % (AUTO) 1 % (0-10); EOSINOPHILS # (AUTO) 0.3 10^3/uL (0.0-0.3); EOSINOPHILS % (AUTO) 5 % (0-10); HEMATOCRIT 41 % (35-52); HEMOGLOBIN 13.9 g/dL (11.5-16.0); LYMPHOCYTES # (AUTO) 1.8 10^3/uL (1.0-4.0); LYMPHOCYTES % (AUTO) 28 % (12-44); MEAN CORPUSCULAR HEMOGLOBIN 31 pg (25-34); MEAN CORPUSCULAR HGB CONC 34 g/dL (32-36); MEAN CORPUSCULAR VOLUME 92 fL (80-99); MEAN PLATELET VOLUME 9.1 fL (9.0-12.2); MONOCYTES # (AUTO) 0.6 10^3/uL (0.0-1.0); MONOCYTES % (AUTO) 9 % (0-12); NEUTROPHILS # (AUTO) 3.6 10^3/uL (1.8-7.8); NEUTROPHILS % (AUTO) 57 % (42-75); PLATELET COUNT 347 10^3/uL (130-400); WHITE BLOOD COUNT 6.3 10^3/uL (4.3-11.0)
[2022-09-27 12:14] LABS: ALBUMIN 4.2 GM/DL (3.2-4.5); CHLORIDE 107 MMOL/L (98-107); POTASSIUM 3.5 MMOL/L (3.6-5.0); PROTHROMBIN TIME PATIENT 13.4 SEC (12.2-14.7); SODIUM 139 MMOL/L (135-145)
[2022-09-27 12:15] LABS: CALCIUM 9.1 MG/DL (8.5-10.1)
[2022-09-27 12:16] LABS: GLUCOSE 89 MG/DL (70-105); TOTAL PROTEIN 7.8 GM/DL (6.4-8.2)
[2022-09-27 12:17] LABS: CARBON DIOXIDE 25 MMOL/L (21-32)
[2022-09-27 12:18] LABS: BILIRUBIN,TOTAL 0.6 MG/DL (0.1-1.0)
[2022-09-27 12:19] LABS: ALKALINE PHOSPHATASE 99 U/L (40-136)
[2022-09-27 12:20] LABS: GFR ESTIMATED 58
[2022-09-27 12:21] LABS: BUN/CREATININE RATIO 13
--- NOTE | 2022-09-27 12:22 | Diagnostic Imaging Report ---
PROCEDURE: CT head wo r/o stroke. TECHNIQUE: Multiple contiguous axial images were obtained through the brain without the use of intravenous contrast. Auto Exposure Controls were utilized during the CT exam to meet ALARA standards for radiation dose reduction. INDICATION: Numbness left arm and bilateral vision loss. COMPARISON: CT of the head on 07/16/2022. FINDINGS: No acute intracranial hemorrhage. Scattered hypoattenuation within the periventricular and subcortical white matter. The ventricles and cortical sulci are normal. The subarachnoid cisterns are normal. There is calcifications of the intracranial vasculature. Mucosal thickening within the right maxillary sinus. Otherwise the nasal sinuses and mastoids are clear. Skull is intact. The globes and orbits are normal. IMPRESSION: No acute intracranial hemorrhage. No large vascular territory lott-white loss. No intracranial mass, midline shift, or hydrocephalus. Mild chronic small vessel ischemic disease. Dictated by: Dictated on workstation # [id number]
[2022-09-27 12:23] LABS: ALANINE AMINOTRANSFERASE 28 U/L (0-55)
--- NOTE | 2022-09-27 12:43 | Diagnostic Imaging Report ---
EXAMINATION: Chest 1 view HISTORY: Vision loss. Left arm pain. Concern for stroke. COMPARISON: 12/07/2021. FINDINGS: The lung volumes are normal. No focal consolidation is seen. No large pleural effusion or pneumothorax is seen. The cardiomediastinal silhouette is prominent. Loop recorder is seen overlying the cardiac silhouette. There is calcified aortic atherosclerotic plaque. No acute osseous abnormality is seen. IMPRESSION: 1. Stable cardiomegaly. No overt pulmonary edema. Dictated by: Dictated on workstation # [id number]
[2022-09-27] MEDS ORDERED: NS 100 ML (IVPB) BAG IV ONE (13:00)
[2022-09-27] MEDS ORDERED: HOLD METFORMIN - RECEIVED CONTRAST 20 ML VIAL IV SCH (13:00)
[2022-09-27] MEDS ORDERED: IOHEXOL 350 MG/ML 100 ML (OMNIPAQUE 350) VIAL IV ONE (13:00)
--- NOTE | 2022-09-27 13:24 | Diagnostic Imaging Report ---
PROCEDURE: CT angiography of the head and CT angiography of the neck with and without contrast. TECHNIQUE: Contiguous noncontrast images were obtained from the skull base through the vertex. After intravenous contrast administration, helical CT angiography of the neck was performed. Source data was reformatted into 3D MIP projections. Delayed post contrast acquisition was also obtained. Auto Exposure Controls were utilized during the CT exam to meet ALARA standards for radiation dose reduction. INDICATION: Bilateral vision loss. Concern for stroke. COMPARISON: CT head performed the same date. MRI brain on 12/25/2021. FINDINGS: CTA Neck: The visualized portions of the aortic arch demonstrate atherosclerotic plaque without evidence of aneurysm or dissection. There is conventional branching pattern of the great vessels of the aorta. The brachiocephalic artery is normal in course and caliber. The right and left common carotid origins are unremarkable. The origin of the left subclavian artery is patent. The common carotid arteries and internal carotid arteries demonstrate a tortuous course. There is calcified atherosclerotic plaque in the bilateral carotid bulbs and proximal internal carotid arteries without flow-limiting stenosis. No evidence of dissection in the carotid systems. The external carotid arteries are patent and unremarkable. The vertebral arteries are codominant. The origin of the right vertebral artery is seen and is unremarkable. The origin of the left vertebral artery is seen and is unremarkable. There is no focal stenosis seen within the neck. There is no dissection. The vertebral arteries are well visualized to up to the level of the basilar artery. The osseous structures of the cervical spine are unremarkable. Included views through the lung apices demonstrate no focal consolidation. CTA brain: Atherosclerotic plaque is seen in the [place] of the bilateral terminal internal carotid arteries without significant stenosis. No stenosis is seen in the bilateral anterior, middle, and posterior cerebral arteries. No evidence of aneurysm the [place]. In the posterior circulation, both of the vertebral arteries demonstrate normal opacification. Both the right and left PICA arteries are identified. The basilar artery is normal in course and caliber. The terminal branch vessels including the superior cerebellar arteries unremarkable. IMPRESSION: 1. No stenosis or aneurysm in the [place]. No large vessel occlusion. 2. No stenosis or dissection the bilateral carotid and vertebral arteries. Dictated by: Dictated on workstation # [id number]
[2022-09-27] MEDS ORDERED: CLOPIDOGREL 300 MG TABLET PO ONE (14:00)
[2022-09-27] MEDS ORDERED: MELATONIN 3 MG TABLET PO PRN (15:00)
[2022-09-27] MEDS ORDERED: polyethylene glycoL POWDER 17 GM (MIRALAX) PACK PO PRN (15:00)
[2022-09-27] MEDS ORDERED: ACETAMINOPHEN 325 MG TABLET PO PRN (15:00)
[2022-09-27] MEDS ORDERED: BISACODYL 10 MG SUPPOSITORY PR PRN (15:00)
[2022-09-27] MEDS ORDERED: LACTULOSE SYRUP 10GM/15ML 30ML UDC PO PRN (15:00)
[2022-09-27] MEDS ORDERED: MILK OF MAGNESIA 400 MG/5 ML 30 ML UDC PO PRN (15:00)
[2022-09-27] MEDS ORDERED: ONDANSETRON INJECTION 4 MG/2 ML (SDV) IV PRN (15:00)
[2022-09-27] MEDS ORDERED: NS IV 500 ML 500 ML IV PRN (15:00)
[2022-09-27] MEDS ORDERED: ANTACID SUSPENSION 30 ML UDC PO PRN (15:00)
[2022-09-27] MEDS ORDERED: CALCIUM CARBONATE 500 MG CHEW TABLET PO PRN (15:00)
[2022-09-27] MEDS ORDERED: ONDANSETRON 4 MG ORAL DISSOLVE TABLET PO PRN (15:00)
[2022-09-27] MEDS ORDERED: ENOXAPARIN 40 MG/0.4 ML SYRINGE SC SCH (15:00)
[2022-09-27] MEDS ORDERED: GADOTERATE 0.5 MMOL/ML (CLARISCAN) 15 ML VIAL IV ONE (15:30)
--- NOTE | 2022-09-27 15:32 | Physical Therapy Evaluation ---
PT Evaluation-General Medical Diagnosis Admission Date Sep 27, 2022 at 14:06 Medical Diagnosis: stroke-like symptoms, vision changes Onset Date: Sep 20, 2022 Therapy Diagnosis Therapy Diagnosis: Gait deficit Height/Weight Height (Feet): 5 Height (Inches): 0.00 Weight (Pounds): 140 Weight (Ounces): 0.0 Precautions Precautions/Isolations: Fall Prevention, Standard Precautions Weight Bear Status Right Lower Extremity: Right Full Weight Bearing Left Lower Extremity: Left Full Weight Bearing Referral Physician: Dr. Vergara Reason for Referral: Evaluation/Treatment Medical History Reviewed History: Yes Social History Home: Single Level Current Living Status: Spouse Entry Into Home: Stairs With Railing PT Steps Into Home: 3 Prior Prior Level of Function SCALE: Activities may be completed with or without assistive devices. 0-Pqclfmfppy-jadabyz completes the activity by him/herself with no assistance from a helper. 5-Set-up or Clean-up Assistance-helper sets up or cleans up; patient completes activity. Tyler assists only prior to or following the activity. 4-Supervision or Touching Assistance-helper provides verbal cues and/or touching/steadying and/or contact guard assistance as patient completes activity. Assistance may be provided throughout the activity or intermittently. 3-Partial/Moderate Assistance-helper does LESS THAN HALF the effort. Tyler lifts, holds or supports trunk or limbs, but provides less than half the effort. 2-Substantial/Maximal Assistance-helper does MORE THAN HALF the effort. Tyler lifts or holds trunk or limbs and provides more than half the effort. 2-Ekwvclhcu-gxkmyc does ALL the effort. Patient does none of the effort to complete the activity. Or, the assistance of 2 or more helpers is required for the patient to complete the activity. If activity was not attempted, code reason: 7-Patient Refused. 9-Not Applicable-not attempted and the patient did not perform the activity before the current illness, exacerbation or injury. 10-Not Attempted due to Environmental Limitations-(lack of equipment, weather restraints, etc.). 88-Not Attempted due to Medical Conditions or Safety Concerns. Bed Mobility: 6 Transfers (B,C,W/C): 6 Gait: 6 Stairs: 6 Indoor Mobility (Ambulation): Independent Stairs: Independent Prior Devices Use: None PT Evaluation-Current Subjective Patient lying supine in bed upon PT arrival, agreeable to treatment. Patient rates pain at 0/10. Objective Patient Orientation: Person, Place, Time, Situation ROM/Strength ROM Lower Extremities WFLs BLEs all planes Strength Lower Extremities 5/5 BLEs all planes Sensory Vision: Functional Hearing: Functional Sensation Right Lower Extremit: Intact Sensation Left Lower Extremity: Intact Transfers Roll Left to Right (QC): 6 Sit to Lying (QC): 6 Lying to Sitting/Side of Bed(Q: 6 Sit to Stand (QC): 6 Chair/Amq-nm-Scoez Xfer(QC): 6 Gait Does the Patient Walk?: Yes Mode of Locomotion: Walk Anticipated Mode of Locomotion: Walk Walk 10 feet (QC): 6 Walk 50 ft with 2 Turns(QC): 6 Walk 150 ft (QC): 6 Distance: 150' Gait Assistive Device: None Balance Sitting Static: Normal Sitting Dynamic: Normal Standing Static: Good Standing Dynamic: Good Assessment/Needs Patient at baseline PLOF. No further PT needed at this time Rehab Potential: Good PT Plan Treatment/Plan Treatment Plan: Discontinue PT Treatment Duration: Sep 27, 2022 Frequency: Patient and/or Family Agrees t: Yes Time Time In: 1500 Time Out: 1510 DATE: Sep 27, 2022 Total Billed Treatment Time: 10 Total Billed Treatment Visit, MADDY GOMES PT Sep 27, 2022 15:31
[2022-09-27] MEDS ORDERED: ASPI-1238 PO (15:56)
[2022-09-27] MEDS ORDERED: DHEA TOP (15:56)
[2022-09-27] MEDS ORDERED: FLUO40CA PO (15:56)
[2022-09-27] MEDS ORDERED: PROGESTERONE TOP (15:56)
[2022-09-27] MEDS ORDERED: TESTO TOP (15:56)
[2022-09-27] MEDS ORDERED: LEVO75TA6 PO (15:56)
[2022-09-27] MEDS ORDERED: BIEST TOP (15:56)
--- NOTE | 2022-09-27 16:02 | Diagnostic Imaging Report ---
MRI BRAIN W/WO CONTRAST Date: 09/27/2022 3:42 PM Indication: Vision loss in both eyes Comparison: CTA of the head on 09/27/2022. Technique: Multiplanar multisequence MRI of the brain was performed with and without intravenous contrast using the standard protocol. Findings: No acute infarct. No acute or chronic hemorrhage. The ventricles are normal in size and configuration without hydrocephalus. Moderate scattered FLAIR hyperintensities in the subcortical and periventricular deep white matter, a nonspecific finding, most commonly seen with chronic small vessel ischemic disease. No abnormal enhancement. The scalp and calvarium are normal. The pituitary and sella are normal. No Chiari malformation. The visualized upper cervical spine is normal. The visualized orbits and globes are normal. The visualized paranasal sinuses are clear. The mastoid air cells are clear. Normal flow voids within the vertebral, basilar, and internal carotid arteries indicating patency. IMPRESSION: 1. No acute infarct or hemorrhage. 2. No mass or abnormal enhancement. 3. Moderate chronic small vessel ischemic disease. Mild global volume loss. Dictated by: Dictated on workstation # [id number]
[2022-09-27] MEDS: DOCUSATE SODIUM 100 MG CAPSULE PO SCH (21:10)
[2022-09-27] MEDS: SENNOSIDES 8.6 MG (SENOKOT) TAB PO SCH (21:11)
[2022-09-28 03:42] VITALS: BP 122/56
[2022-09-28 06:00] LABS: BASOPHILS # (AUTO) 0.1 10^3/uL (0.0-0.1); BASOPHILS % (AUTO) 1 % (0-10); EOSINOPHILS # (AUTO) 0.3 10^3/uL (0.0-0.3); EOSINOPHILS % (AUTO) 5 % (0-10); HEMATOCRIT 39 % (35-52); HEMOGLOBIN 13.3 g/dL (11.5-16.0); LYMPHOCYTES # (AUTO) 1.7 10^3/uL (1.0-4.0); LYMPHOCYTES % (AUTO) 25 % (12-44); MEAN CORPUSCULAR HEMOGLOBIN 31 pg (25-34); MEAN CORPUSCULAR HGB CONC 34 g/dL (32-36); MEAN CORPUSCULAR VOLUME 91 fL (80-99); MEAN PLATELET VOLUME 9.6 fL (9.0-12.2); MONOCYTES # (AUTO) 0.6 10^3/uL (0.0-1.0); MONOCYTES % (AUTO) 9 % (0-12); NEUTROPHILS # (AUTO) 4.2 10^3/uL (1.8-7.8); NEUTROPHILS % (AUTO) 60 % (42-75); PLATELET COUNT 327 10^3/uL (130-400); WHITE BLOOD COUNT 6.9 10^3/uL (4.3-11.0)
[2022-09-28] MEDS ORDERED: POTASSIUM BICARB 20 MEQ (EFFER-K) TABLET PO SCH (06:00)
[2022-09-28] MEDS ORDERED: POTASSIUM CL 10MEQ/50ML IVPB 50 ML IV SCH (06:00)
[2022-09-28] MEDS ORDERED: POTASSIUM CHLORIDE 20 MEQ TABLET PO SCH (06:00)
[2022-09-28] MEDS ORDERED: MAGNESIUM 1 GM/100 ML IVPB 100 ML IV SCH (06:00)
[2022-09-28 06:11] LABS: POTASSIUM 3.7 MMOL/L (3.6-5.0)
[2022-09-28 06:13] LABS: CALCIUM 8.7 MG/DL (8.5-10.1)
[2022-09-28 06:17] LABS: CREATININE SERUM 1.04 MG/DL (0.60-1.30)
[2022-09-28] MEDS ORDERED: POTASSIUM CHLORIDE 20 MEQ TABLET PO ONE (06:30)
[2022-09-28] MEDS ORDERED: LEVOTHYROXINE 75 MCG TABLET PO SCH (06:30)
[2022-09-28 07:15] VITALS: BP 143/86
[2022-09-28] MEDS: SENNOSIDES 8.6 MG (SENOKOT) TAB PO SCH (08:26)
[2022-09-28] MEDS: DOCUSATE SODIUM 100 MG CAPSULE PO SCH (08:26)
[2022-09-28] MEDS ORDERED: FLUoxetine 20 MG CAPSULE PO SCH (09:00)
[2022-09-28] MEDS ORDERED: CLOPIDOGREL 75 MG TABLET PO SCH (09:00)
[2022-09-28] MEDS ORDERED: ASPI-1238 PO (10:36)
[2022-09-28] MEDS ORDERED: CLOP75TA28 PO (10:36)
--- NOTE | 2022-09-28 11:10 | Occ Therapy Progress Note ---
Therapy Progress Note OT order received, screen performed to determine need for OT evaluation, patient is independent in room and toileting, independent in ADL, reports occasional LOB when spinning around but it is not new. Discharge OT services IZABEL PARSON OT Sep 28, 2022 11:10
[2022-09-28 11:13] VITALS: BP 143/86
[2022-09-28 11:15] VITALS: BP 143/86
--- NOTE | 2022-09-29 18:40 | Short Stay Summary-Hospitalist ---
History of Present Illness HPI/Chief Complaint Jason Gomez is a 77 year old female with PMH HTN, HLD, hypothyroidism, cervical stenosis s/p spinal fusion, who presented with vision changes. She reports peripheral vision loss which started over a day ago. She reports having this issue frequently. It usually resolves on its own, but it persisted so she came to the ER. She also reports facial numbness. She denies weakness in her arms or legs. She denies speech changes. She denies swallowing trouble. She denies dizziness. Upon my exam, her symptoms have resolved. Source: patient Exam Limitations: no limitations Date Seen 09/29/22 Time Seen by a Provider: 10:00 Attending Physician Abad Delarosa MD PCP Admitting Physician: Taylor Vergara MD Attending Physician: Taylor Vergara MD Referring Physician Date of Admission Sep 27, 2022 at 14:06 Home Medications & Allergies Home Medications Reviewed patient Home Medication Reconciliation performed by pharmacy medication reconciliations veterinary laboratory technician and/or nursing. Patients Allergies have been reviewed. Allergies Allergies Coded Allergies No Known Drug Allergies (Ounkltrssi68/27/22) Past Xtidikl-Rsksul-Ukwmme Hx Patient Social History Tobacco Use?: No Smoking Status: Never a Smoker Use of E-Cig and/or Vaping dev: No Substance use?: No Alcohol Use?: Yes Additional alcohol type: periodically Alcohol Frequency: Rarely Pt feels they are or have been: No Immunizations Up To Date First/Initial COVID19 Vaccinat: 2020 Second COVID19 Vaccination Bartolo: 2020 Tetanus Booster (TDap): Less Than 5 Years Hepatitis A: No Hepatitis B: No Seasonal Allergies Seasonal Allergies: No Current Status status: No status: No Advance Directives: No Communicates: Verbally Primary Language: Qatari Preferred Spoken Language: Qatari Is interpretation needed?: No Sensory deficits: Hearing impairment Additional sensory deficits: right hearing loss hearing aides not with patient on admission Past Medical History Surgeries: Gallbladder, Hysterectomy 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, 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 0.0oz. 63.726001ts; 27.90 BMI Method: General Appearance: No Apparent Distress, WD/WN HEENT: PERRL/EOMI, Pharynx Normal Neck: Normal Inspection, Supple Respiratory: Lungs Clear, Normal Breath Sounds, No Respiratory Distress Cardiovascular: Regular Rate, Rhythm, No Edema, No Murmur Gastrointestinal: Normal Bowel Sounds, Non Tender, Soft Extremity: Normal Inspection Neurologic/Psychiatric: Alert, Normal Mood/Affect; No Facial Droop, No Motor Weakness, No Sensory Deficit Skin: Normal Color, Warm/Dry Results Results/Procedures Labs Laboratory Tests 09/28/22 05:11 Patient resulted labs reviewed. Imaging: Reviewed Imaging Report Short Stay Diagnosis Discharge Diagnosis-Short Stay Admission Diagnosis Stroke like symptoms Final Discharge Diagnosis TIA Conclusion Plan TIA HTN HLD Plavix x3 weeks, then resume Aspirin Lipitor MRI without acute abnormalities Follow up with your PCP, Dr. Delarosa, in about a week Diagnosis/Problems Diagnosis/Problems (1) Stroke-like symptoms Status: Acute (2) TIA (transient ischemic attack) Status: Acute (3) HTN (hypertension) Status: Chronic (4) HLD (hyperlipidemia) Status: Chronic Clinical Quality Measures Stroke: Date of last known well: Sep 13, 2022 Copy Copies To 1: ABAD DELAROSA MD, JARIN M MD Sep 29, 2022 18:40
== END 2022-09-28 10:35 | disposition home or self-care (01) ==
LOC: EDUNIT# 11:36 → ER 11:38 → 4TH 14:06 → UNDOADMOB 14:06 → 4TH 14:10 → UNDODISOB 09-28 10:35
PROVIDERS: ADMIT Internal Medicine; ATTEND Internal Medicine
DX: G45.9 Transient cerebral ischemic attack, unspecified (principal); I10 Essential (primary) hypertension; E78.5 Hyperlipidemia, unspecified; Z79.82 Long term (current) use of aspirin
CPT/HCPCS: 70450; 70496; 70498; 70553; 71045; 80048; 80053; 83735; 84484; 85025 ×2; 85610; 85730; 93005; 93041; 96372; 97161; 99284; G0378; 36415

== ENCOUNTER → 2022-12-24 | Outpatient (CLI) | payer MEDICARE, OTHER ==
[~2022-12-24] MED LIST changes: +ASPI-1238 PO; +BIEST TOP; +CLOP75TA28 PO; +DHEA TOP; +FLUO40CA PO; -MECL-149 PO; +MECL-291 PO; +PROGESTERONE TOP; +TESTO TOP
--- NOTE | 2022-12-24 15:42 | Diagnostic Imaging Report ---
3-D bilateral screening mammogram with CAD. This study was compared to the prior exam of 10/25/2021, 10/05/2020 and 10/05/2019. The current study was also evaluated with a Computer Aided Detection (CAD) system. FINDINGS: The fibroglandular tissue in both breasts is heterogeneously dense. This does limit the sensitivity of this exam. Overall, there does not appear to have been any significant change when compared to the prior study. No primary or secondary sign of malignancy is noted. The loop recorder device in the left breast seen previously is again evident and no different. IMPRESSION: There is no radiographic evidence for malignancy. ACR BI-RADS Category 1: Negative. Result letter will be mailed to the patient. Note: At least 10% of breast cancer is not imaged by mammography. Dictated by: Dictated on workstation # [id number]
== END ==
LOC: RAD 07:57
PROVIDERS: ATTEND Family Medicine
DX: Z12.31 Encounter for screening mammogram for malignant neoplasm of breast (principal)
CPT/HCPCS: 77063; 77067